=== PATIENT | female | born 1950 | race Caucasian/White ===

== ENCOUNTER 2017-10-04 13:18 | Day surgery (SDC) | payer OTHER ==
[~2017-10-04 13:18] MED LIST: ALBU90OI INH; ASPI325EC PO; ATOR40TA PO; BENZ100A PO; CLON2 PO; CYCL10 PO; Cephalexin500 M1 PO; DIPH50 PO; GABA100 PO; IBUP400 PO; LISI5 PO; METF500 PO; Naprosyn375 MG PO; Norco 5-325 Ta1 EACH PO; PANT40 PO; PIOG45 PO; Prednisone20 MG PO; TRAM50 PO; Ultram50 MG PO; Zithromax250 MG PO
[2017-10-04 14:57] LABS: BASOPHILS ABSOLUTE AUTO 0.06 K/mm3 (0.00-0.23); BASOPHILS PERCENT AUTO 1 % (0-2); EOSINOPHILS ABSOLUTE AUTO 0.33 K/mm3 (0.00-0.68); EOSINOPHILS PERCENT AUTO 4 % (0-6); Hematocrit 25.2 % (33.0-51.0); Hemoglobin 7.4 g/dL (11.5-16.0); IMMATURE GRAN ABSOLUTE AUTO 0.03 K/mm3 (0.00-0.10); IMMATURE GRAN PERCENT AUTO 0 % (0-1); LYMPHOCYTES ABSOLUTE AUTO 1.85 K/mm3 (0.84-5.20); LYMPHOCYTES PERCENT AUTO 21 % (21-46); MONOCYTES ABSOLUTE AUTO 0.98 K/mm3 (0.16-1.47); MONOCYTES PERCENT AUTO 11 % (4-13); Mean Corpuscular HGB 19.8 pg (26.0-34.0); Mean Corpuscular HGB Conc 29.4 g/dL (31.5-36.5); Mean Corpuscular Volume 67 fL (80-100); NEUTROPHILS PERCENT AUTO 63 % (41-73); Platelet Count 648 K/mm3 (150-400); RDW Coefficient Variation 17.8 % (11.7-14.2); Red Blood Cell Count 3.74 M/mm3 (3.80-5.20); White Blood Cell Count 8.65 K/mm3 (4.00-11.30)
[2017-10-04] MEDS ORDERED: METF500 PO (16:23)
[2017-10-04] MEDS ORDERED: ATOR80 PO (16:23)
[2017-10-04] MEDS ORDERED: Cyclobenzaprine5 MG PO (16:26)
[2017-10-04] MEDS ORDERED: Ferrous Sulfat325 MG PO (16:27)
[2017-10-04] MEDS ORDERED: CLARITIN10 MG PO (16:28)
[2017-10-04 18:13] LABS: Hematocrit 26.3 % (33.0-51.0); Mean Corpuscular HGB Conc 30.4 g/dL (31.5-36.5); Mean Corpuscular Volume 69 fL (80-100); Mean Platelet Volume 9.6 fL (9.1-12.4); Platelet Count 563 K/mm3 (150-400); RDW Coefficient Variation 20.1 % (11.7-14.2); RDW Standard Deviation 47.7 fL (35.1-46.3); Red Blood Cell Count 3.81 M/mm3 (3.80-5.20); White Blood Cell Count 9.35 K/mm3 (4.00-11.30)
[2017-10-04] MEDS ORDERED: Lasix20 MG PO (20:39)
== END 2017-10-04 18:13 | disposition home or self-care (01) ==
LOC: ATC 13:18
PROVIDERS: Physician Assistant
DX: D64.9 Anemia, unspecified (principal); M62.81 Muscle weakness (generalized); R60.0 Localized edema; I87.2 Venous insufficiency (chronic) (peripheral); L50.9 Urticaria, unspecified; Z74.1 Need for assistance with personal care; F17.210 Nicotine dependence, cigarettes, uncomplicated; E78.5 Hyperlipidemia, unspecified
CPT/HCPCS: 36415; 36430; 85025; 85027; 86850; 86900; 86901; 86923; J7030; P9016

== ENCOUNTER 2017-10-04 18:23 | Emergency (ER) | payer OTHER ==
[~2017-10-04] VITALS: Ht 172.7 cm; Wt 79.4 kg
[~2017-10-04 18:23] MED LIST changes: +ATOR80 PO; +CLARITIN10 MG PO; +Cyclobenzaprine5 MG PO; +Ferrous Sulfat325 MG PO
[2017-10-04 19:48] LABS: BASOPHILS ABSOLUTE AUTO 0.08 K/mm3 (0.00-0.23); BASOPHILS PERCENT AUTO 1 % (0-2); EOSINOPHILS ABSOLUTE AUTO 0.29 K/mm3 (0.00-0.68); EOSINOPHILS PERCENT AUTO 3 % (0-6); Hemoglobin 8.1 g/dL (11.5-16.0); IMMATURE GRAN ABSOLUTE AUTO 0.03 K/mm3 (0.00-0.10); IMMATURE GRAN PERCENT AUTO 0 % (0-1); LYMPHOCYTES ABSOLUTE AUTO 1.66 K/mm3 (0.84-5.20); LYMPHOCYTES PERCENT AUTO 17 % (21-46); MONOCYTES ABSOLUTE AUTO 0.98 K/mm3 (0.16-1.47); MONOCYTES PERCENT AUTO 10 % (4-13); Mean Corpuscular HGB 20.9 pg (26.0-34.0); Mean Corpuscular Volume 70 fL (80-100); Mean Platelet Volume 8.6 fL (9.1-12.4); NEUTROPHILS ABSOLUTE AUTO 6.79 K/mm3 (1.96-9.15); NEUTROPHILS PERCENT AUTO 69 % (41-73); Platelet Count 616 K/mm3 (150-400); RDW Coefficient Variation 19.9 % (11.7-14.2); RDW Standard Deviation 47.5 fL (35.1-46.3); Red Blood Cell Count 3.88 M/mm3 (3.80-5.20); White Blood Cell Count 9.83 K/mm3 (4.00-11.30)
[2017-10-04 20:07] LABS: Alanine Aminotransfer (ALT/SGP 19 U/L (12-78); Albumin, Blood 3.9 g/dL (3.4-5.0); Albumin/Globulin Ratio 0.9 (0.8-1.8); Alk Phos 120 U/L (50-136); Anion Gap 8 mmol/L (6-16); Aspartate Aminotrans (AST/SGOT 24 U/L (12-37); Bilirubin, Total 1.1 mg/dL (0.1-1.0); Blood Urea Nitrogen 23 mg/dL (8-24); Bun/Creatinine Ratio 31.2 (12.0-20.0); CO2, Blood 25 mmol/L (21-32); Chloride, Blood 107 mmol/L (98-108); Creatinine, Blood 0.74 mg/dL (0.40-1.00); Globulin, Blood 4.2 g/dL (2.2-4.0); Glomerular Filtration Rate >60 (60-); Glucose, Blood 96 mg/dL (70-99); Potassium, Blood 4.1 mmol/L (3.5-5.5); Sodium, Blood 140 mmol/L (136-145); Total Protein, Blood 8.1 g/dL (6.4-8.2)
[2017-10-04] MEDS ORDERED: Lasix20 MG PO (20:39)
== END 2017-10-04 21:38 | disposition home or self-care (01) ==
LOC: ER 18:23
PROVIDERS: Emergency Medicine
DX: R60.0 Localized edema (principal); M16.10 Unilateral primary osteoarthritis, unspecified hip; G89.29 Other chronic pain; E11.9 Type 2 diabetes mellitus without complications; D64.9 Anemia, unspecified; F17.200 Nicotine dependence, unspecified, uncomplicated; Z79.899 Other long term (current) drug therapy; Z79.84 Long term (current) use of oral hypoglycemic drugs
CPT/HCPCS: 36415; 80053; 83880; 85025; 96374; 99283; J1940

== ENCOUNTER 2018-01-21 08:40 | Day surgery (SDC) | payer OTHER ==
[~2018-01-21] VITALS: Ht 172.7 cm; Wt 79.4 kg
[~2018-01-21 08:40] MED LIST changes: +Lasix20 MG PO
[2018-01-21 11:26] LABS: BASOPHILS ABSOLUTE AUTO 0.04 K/mm3 (0.00-0.23); BASOPHILS PERCENT AUTO 1 % (0-2); EOSINOPHILS ABSOLUTE AUTO 0.18 K/mm3 (0.00-0.68); EOSINOPHILS PERCENT AUTO 2 % (0-6); Hematocrit 30.3 % (33.0-51.0); Hemoglobin 9.6 g/dL (11.5-16.0); IMMATURE GRAN ABSOLUTE AUTO 0.02 K/mm3 (0.00-0.10); IMMATURE GRAN PERCENT AUTO 0 % (0-1); LYMPHOCYTES ABSOLUTE AUTO 1.37 K/mm3 (0.84-5.20); LYMPHOCYTES PERCENT AUTO 17 % (21-46); MONOCYTES PERCENT AUTO 8 % (4-13); Mean Corpuscular HGB 24.3 pg (26.0-34.0); Mean Corpuscular HGB Conc 31.7 g/dL (31.5-36.5); Mean Corpuscular Volume 77 fL (80-100); Mean Platelet Volume 8.9 fL (9.1-12.4); NEUTROPHILS ABSOLUTE AUTO 5.74 K/mm3 (1.96-9.15); NEUTROPHILS PERCENT AUTO 72 % (41-73); Platelet Count 366 K/mm3 (150-400); RDW Coefficient Variation 21.2 % (11.7-14.2); Red Blood Cell Count 3.95 M/mm3 (3.80-5.20); White Blood Cell Count 7.95 K/mm3 (4.00-11.30)
[2018-01-21 11:49] LABS: Anion Gap 8 mmol/L (6-16); Blood Urea Nitrogen 19 mg/dL (8-24); Bun/Creatinine Ratio 30.4 (12.0-20.0); CO2, Blood 26 mmol/L (21-32); Calcium, Blood 8.5 mg/dL (8.5-10.1); Chloride, Blood 102 mmol/L (98-108); Creatinine, Blood 0.62 mg/dL (0.40-1.00); Glomerular Filtration Rate >60 (60-); Glucose, Blood 94 mg/dL (70-99); Potassium, Blood 3.7 mmol/L (3.5-5.5); Sodium, Blood 136 mmol/L (136-145)
== END 2018-01-21 11:53 | disposition home or self-care (01) ==
LOC: ORSCSDS 08:40
PROVIDERS: Internal Medicine Gastroenterology
PROC: 0DB68ZX Excision of Stomach, Via Natural or Artificial Opening Endoscopic, Diagnostic (ICD-10-PCS; principal; 2018-01-21 10:00)
PROC: 0DB58ZX Excision of Esophagus, Via Natural or Artificial Opening Endoscopic, Diagnostic (ICD-10-PCS; principal; 2018-01-21 10:00)
DX: D64.9 Anemia, unspecified (principal); K21.0 Gastro-esophageal reflux disease with esophagitis; K29.80 Duodenitis without bleeding; K29.70 Gastritis, unspecified, without bleeding; K44.9 Diaphragmatic hernia without obstruction or gangrene; Z87.19 Personal history of other diseases of the digestive system; I10 Essential (primary) hypertension; F41.8 Other specified anxiety disorders; E78.5 Hyperlipidemia, unspecified; E11.9 Type 2 diabetes mellitus without complications; F17.210 Nicotine dependence, cigarettes, uncomplicated; Z79.84 Long term (current) use of oral hypoglycemic drugs; Z79.899 Other long term (current) drug therapy
CPT/HCPCS: 80048; 82941; 82947; 85025; J2250; J7120

== ENCOUNTER 2018-07-07 15:03 | Inpatient (IN) | payer OTHER ==
[~2018-07-07] VITALS: Ht 152.4 cm; Wt 92.1 kg
[~2018-07-07 15:03] MED LIST changes: -ATOR80 PO; +FURO20 PO; +Ferosul325 MG PO; -LISI5 PO; +Micro-K10 MEQ PO; +Protonix40 MG PO
[2018-07-07 16:13] LABS: BASOPHILS ABSOLUTE AUTO 0.03 K/mm3 (0.00-0.23); BASOPHILS PERCENT AUTO 0 % (0-2); EOSINOPHILS ABSOLUTE AUTO 0.02 K/mm3 (0.00-0.68); EOSINOPHILS PERCENT AUTO 0 % (0-6); Hemoglobin 6.2 g/dL (11.5-16.0); IMMATURE GRAN ABSOLUTE AUTO 0.04 K/mm3 (0.00-0.10); IMMATURE GRAN PERCENT AUTO 1 % (0-1); LYMPHOCYTES ABSOLUTE AUTO 1.06 K/mm3 (0.84-5.20); LYMPHOCYTES PERCENT AUTO 14 % (21-46); MONOCYTES ABSOLUTE AUTO 0.82 K/mm3 (0.16-1.47); MONOCYTES PERCENT AUTO 11 % (4-13); Mean Corpuscular HGB 20.7 pg (26.0-34.0); Mean Corpuscular HGB Conc 29.5 g/dL (31.5-36.5); Mean Corpuscular Volume 70 fL (80-100); Mean Platelet Volume 8.6 fL (9.1-12.4); NEUTROPHILS ABSOLUTE AUTO 5.59 K/mm3 (1.96-9.15); NEUTROPHILS PERCENT AUTO 74 % (41-73); NRBC ABSOLUTE 0.03 K/mm3 (0.00-0.02); NRBC Auto 0.4 /100 WBC (0.0-0.2); Platelet Count 459 K/mm3 (150-400); RDW Standard Deviation 47.2 fL (35.1-46.3); White Blood Cell Count 7.56 K/mm3 (4.00-11.30)
[2018-07-07 16:39] LABS: Alanine Aminotransfer (ALT/SGP 62 U/L (12-78); Albumin, Blood 3.1 g/dL (3.4-5.0); Albumin/Globulin Ratio 0.8 (0.8-1.8); Alk Phos 88 U/L (50-136); Anion Gap 9 mmol/L (6-16); Aspartate Aminotrans (AST/SGOT 104 U/L (12-37); Bilirubin, Total 0.2 mg/dL (0.1-1.0); Blood Urea Nitrogen 23 mg/dL (8-24); Bun/Creatinine Ratio 34.7 (12.0-20.0); CO2, Blood 23 mmol/L (21-32); Calcium, Blood 8.2 mg/dL (8.5-10.1); Chloride, Blood 112 mmol/L (98-108); Creatinine, Blood 0.66 mg/dL (0.40-1.00); Globulin, Blood 4.1 g/dL (2.2-4.0); Glomerular Filtration Rate >60 (60-); Glucose, Blood 93 mg/dL (70-99); Potassium, Blood 3.6 mmol/L (3.5-5.5); Sodium, Blood 144 mmol/L (136-145); Total Protein, Blood 7.2 g/dL (6.4-8.2)
[2018-07-07 17:45] LABS: Source, Urine Clean Catch
[2018-07-07 17:53] LABS: Bilirubin, Urine Neg (Neg); Blood, Urine 4+ (Neg); Glucose Qualitative, Urine Neg (Neg); Ketones, Urine 1+ (Neg); Leukocyte Esterase, Urine 2+ (Neg); Nitrite, Urine Pos (Neg); Protein, Urine 3+ (Neg); Urobilinogen, Urine NORM (Normal)
[2018-07-07 17:57] LABS: International Normalized Ratio 1.42; Prothrombin Time Results 14.6 Sec (9.7-11.5)
[2018-07-07 17:58] LABS: Appearance, Urine Hazy (Clear); Color, Urine Yellow (P-Yellow)
[2018-07-07 17:59] LABS: White Blood Cells, Urine 25-50 /hpf (0-5)
[2018-07-07 18:00] LABS: Bacteria Many /hpf; Squamous Epithelial Cells Few /hpf (Few)
[2018-07-08 06:24] LABS: BASOPHILS ABSOLUTE AUTO 0.04 K/mm3 (0.00-0.23); BASOPHILS PERCENT AUTO 1 % (0-2); EOSINOPHILS ABSOLUTE AUTO 0.06 K/mm3 (0.00-0.68); EOSINOPHILS PERCENT AUTO 1 % (0-6); Hematocrit 22.4 % (33.0-51.0); Hemoglobin 6.6 g/dL (11.5-16.0); IMMATURE GRAN ABSOLUTE AUTO 0.05 K/mm3 (0.00-0.10); IMMATURE GRAN PERCENT AUTO 1 % (0-1); LYMPHOCYTES ABSOLUTE AUTO 1.24 K/mm3 (0.84-5.20); LYMPHOCYTES PERCENT AUTO 17 % (21-46); MONOCYTES PERCENT AUTO 13 % (4-13); Mean Corpuscular HGB 21.2 pg (26.0-34.0); Mean Corpuscular HGB Conc 29.5 g/dL (31.5-36.5); Mean Corpuscular Volume 72 fL (80-100); Mean Platelet Volume 8.8 fL (9.1-12.4); NEUTROPHILS ABSOLUTE AUTO 4.87 K/mm3 (1.96-9.15); NEUTROPHILS PERCENT AUTO 68 % (41-73); NRBC ABSOLUTE 0.08 K/mm3 (0.00-0.02); NRBC Auto 1.1 /100 WBC (0.0-0.2); Platelet Count 424 K/mm3 (150-400); RDW Coefficient Variation 19.3 % (11.7-14.2); RDW Standard Deviation 50.1 fL (35.1-46.3); Red Blood Cell Count 3.11 M/mm3 (3.80-5.20); White Blood Cell Count 7.16 K/mm3 (4.00-11.30)
[2018-07-08 06:34] LABS: Anion Gap 10 mmol/L (6-16); Blood Urea Nitrogen 17 mg/dL (8-24); Bun/Creatinine Ratio 24.3 (12.0-20.0); CO2, Blood 22 mmol/L (21-32); Calcium, Blood 7.7 mg/dL (8.5-10.1); Chloride, Blood 112 mmol/L (98-108); Glomerular Filtration Rate >60 (60-); Glucose, Blood 90 mg/dL (70-99); Potassium, Blood 3.4 mmol/L (3.5-5.5); Sodium, Blood 144 mmol/L (136-145)
[2018-07-08 07:12] LABS: Influenza A Negative (NEGATIVE); Influenza B Negative (NEGATIVE)
[2018-07-08 18:52] LABS: Hematocrit 27.3 % (33.0-51.0); Hemoglobin 8.5 g/dL (11.5-16.0)
--- NOTE | 2018-07-08 19:51 | NUR ---
END OF SHIFT PT HAS HAD 2 UNITS OF BLOOD, VSSW, PT ABLE TO FOLLOW DIRECTIONS, NO CHNAGES TO THE ROSE ASSESSMENT, PT TOLERATING AMBULATION,
[2018-07-09 04:12] LABS: Hematocrit 28.9 % (33.0-51.0); Hemoglobin 8.7 g/dL (11.5-16.0); Mean Corpuscular HGB 22.1 pg (26.0-34.0); Mean Corpuscular HGB Conc 30.1 g/dL (31.5-36.5); Mean Corpuscular Volume 74 fL (80-100); Mean Platelet Volume 8.8 fL (9.1-12.4); NRBC ABSOLUTE 0.08 K/mm3 (0.00-0.02); NRBC Auto 1.1 /100 WBC (0.0-0.2); Platelet Count 401 K/mm3 (150-400); RDW Coefficient Variation 20.4 % (11.7-14.2); RDW Standard Deviation 53.5 fL (35.1-46.3); Red Blood Cell Count 3.93 M/mm3 (3.80-5.20); White Blood Cell Count 7.14 K/mm3 (4.00-11.30)
[2018-07-09 04:37] LABS: Albumin, Blood 2.7 g/dL (3.4-5.0); Anion Gap 10 mmol/L (6-16); Blood Urea Nitrogen 12 mg/dL (8-24); Bun/Creatinine Ratio 19.3 (12.0-20.0); CO2, Blood 22 mmol/L (21-32); Chloride, Blood 110 mmol/L (98-108); Creatinine, Blood 0.62 mg/dL (0.40-1.00); Glomerular Filtration Rate >60 (60-); Glucose, Blood 75 mg/dL (70-99); Potassium, Blood 3.3 mmol/L (3.5-5.5); Sodium, Blood 142 mmol/L (136-145)
--- NOTE | 2018-07-09 06:25 | NUR ---
SHIFT SUMMARY- PT HAS REMAINED AOX3 THIS SHIFT, OCCASIONAL DISORIENTATION TO PLACE ON WAKING, REORIENTS WELL. PT CONTINUES TO TALK TO SELF IN ROOM AND CALL OUT LOUDLY FROM ROOM. PT IS NOT COOPERATIVE WITH CARE- REFUSES TURNING AND MULTIPLE ATTEMPTS AT CHANGING ATTENDS OR DRESSINGS ON LEGS. PT YELLING AT STAFF THIS AM WHEN ATTEMPTING TO MAKE COMFORTABLE AND ADDRESS PAIN- REFUSES TO ANSWER QUESTIONS TO WHAT WILL MAKE HER COMFORTABLE. PT EDUCATED ON SKIN INTEGRITY AND PAIN MANAGEMENT BUT IS NOT RECEPTIVE. PT REFUSING SCD'S WITH LEG WOUUNDS AND LEG PAIN. VITAL SIGNS HAVE REMAINED STABLE. BED IN LOW POSITION, CALL LIGHT IN REACH. BED ALARM SET FOR SAFETY.
--- NOTE | 2018-07-09 17:59 | NUR ---
Initial Visit: Palliative Care Consult for goals of care. Pt is A&O and sitting on the edge of her bed eating dinner upon arrival. Pt is of [place] and lives at home alone. She reports that a caregiver comes into her home 5 days a week. Engaged in therapuetic conversation about Pt's family and goals of care. Pt reports having 2 adult children and their relationship are strained. Her son is currently in alf. Pt also reports losing her due to a stroke in 2012. Started to engage in goals of care including AD/POLST when her IV started having issued. Nurse Robb attempted several times during visit to resolve issue and Pt was distracted with eating her meal. Instructed Pt this RN will follow tomorrow and allow her to finish her meal. Plan is to follow up with Pt to continue discussion with goals of care and AD/POLST.
--- NOTE | 2018-07-09 18:42 | NUR ---
PATIENT TRANSFERRED FROM PCU 2 TO ROOM AT THIS TIME. ALERT. DENIES PAIN OR DISCOMFORT AT THIS TIME. CALL LIGHT IN REACH. WILL REPORT TO NOC RN.
[2018-07-10 05:06] LABS: BASOPHILS ABSOLUTE AUTO 0.06 K/mm3 (0.00-0.23); BASOPHILS PERCENT AUTO 1 % (0-2); EOSINOPHILS ABSOLUTE AUTO 0.25 K/mm3 (0.00-0.68); EOSINOPHILS PERCENT AUTO 3 % (0-6); Hematocrit 27.1 % (33.0-51.0); Hemoglobin 8.5 g/dL (11.5-16.0); IMMATURE GRAN ABSOLUTE AUTO 0.06 K/mm3 (0.00-0.10); IMMATURE GRAN PERCENT AUTO 1 % (0-1); LYMPHOCYTES ABSOLUTE AUTO 1.62 K/mm3 (0.84-5.20); LYMPHOCYTES PERCENT AUTO 19 % (21-46); MONOCYTES ABSOLUTE AUTO 0.78 K/mm3 (0.16-1.47); MONOCYTES PERCENT AUTO 9 % (4-13); Mean Corpuscular HGB 22.7 pg (26.0-34.0); Mean Corpuscular HGB Conc 31.4 g/dL (31.5-36.5); Mean Corpuscular Volume 73 fL (80-100); Mean Platelet Volume 8.8 fL (9.1-12.4); NEUTROPHILS ABSOLUTE AUTO 5.57 K/mm3 (1.96-9.15); NEUTROPHILS PERCENT AUTO 67 % (41-73); NRBC ABSOLUTE 0.04 K/mm3 (0.00-0.02); NRBC Auto 0.5 /100 WBC (0.0-0.2); Platelet Count 397 K/mm3 (150-400); RDW Coefficient Variation 21.1 % (11.7-14.2); RDW Standard Deviation 54.4 fL (35.1-46.3); Red Blood Cell Count 3.74 M/mm3 (3.80-5.20); White Blood Cell Count 8.34 K/mm3 (4.00-11.30)
[2018-07-10 06:06] LABS: Albumin, Blood 2.6 g/dL (3.4-5.0); Anion Gap 10 mmol/L (6-16); Blood Urea Nitrogen 10 mg/dL (8-24); CO2, Blood 24 mmol/L (21-32); Calcium, Blood 7.7 mg/dL (8.5-10.1); Chloride, Blood 106 mmol/L (98-108); Creatinine, Blood 0.62 mg/dL (0.40-1.00); Glomerular Filtration Rate >60 (60-); Glucose, Blood 96 mg/dL (70-99); Phosphorus, Blood 3.4 mg/dL (2.5-4.9); Sodium, Blood 140 mmol/L (136-145)
--- NOTE | 2018-07-10 06:22 | NUR ---
SHIFT SUMMARY PT ADMITTED W/ ANEMIA. H&H THIS MORNING ARE 8.5/27.1. PT'S CHRONIC LEG WOUNDS WERE REDRESSED THIS MORNING W/ XEROFORM, EXU-DRY, AND KERLEX. ZINC CREAM APPLIED TO SCALING TO BLE. SHE HAD SIGNIFICANT PAIN OVERNIGHT R/T LEG CRAMPS/SPASMS. BP ELEVATED THIS AM, LABETALOL GIVEN PER ORDERS. PT INCONT AT BASELINE, ATTENDS IN PLACE. POWERGLIDE STARTED LEAKING LAST NIGHT, WILL NEED TO BE REDRESSED OR TAKEN OUT IF IT CAN'T BE SAVED. WILL CTM UNTIL PASS TO NEXT SHIFT.
--- NOTE | 2018-07-10 09:53 | NUR ---
DEEP IV LEAKS WHEN FLUSHED, D/C'D. SITE CLEAR.
--- NOTE | 2018-07-10 09:54 | NUR ---
PATIENT TALKATIVE WITH MED PASS/ASSESSMENT. SAT TO SIDE OF BED FOR AM MEAL. NOW SLEEPING. CALL LIGHT IN REACH. BED ALARM ON.
--- NOTE | 2018-07-10 15:53 | NUR ---
Pt visit this afternoon. Pt is A&O x4 and initially reports no pain. Engaged in therapeutic conversation about goals of care and discussed POLST form. Pt is agreeable to completing a POLST. Provided education on each section including cardiopulmonary resuscitation, medical interventions, and artificial nutrition. Pt chooses DNR, Limited treatment, and no artificial nutrition by tube and signs POLST. Pt starts to experience 10/10 cramping pain in her legs and hips. Notified nurse and instructed Pt visit can be scheduled in the future if she has any other concerns. Called Dr George and left message reporting of Pt's wishes and POLST needs physician signature. Plan is to obtain copy of completed once hospitalist has signed. Will remain available for any other concerns.
--- NOTE | 2018-07-10 17:59 | NUR ---
SHIFT SUMMARY PATIENT SITTING TO SIDE OF LIANE FOR MEALS. LEG CRAMPS SOME IMPROVED TODAY. PATIENT APPROPRIATE. REFUSED TO STAND WITH PT. TOLERATING PO. PATIENT SPOKE WITH PALLIATIVE CARE RN, AND LATER REPEATED TO THIS RM, SHE WISHES TO BE DNR STATUS. DR FINN INFORMED, SHE WILL ENTER ORDER. NO ACUTE CHANGES.
--- NOTE | 2018-07-11 04:08 | NUR ---
SHIFT SUMMARY PT REMAINS ON FLOOR R/T ANEMIA. HER H&H IS LOW BUT STABLE AT 8.5, RIGHT ABOUT WHERE IT HAS BEEN FOR THREE DAYS. SHE CONTINUES TO COMPLAIN OF MUSCLE SPASMS IN HER LEGS. BLE ARE PAINFUL TO THE TOUCH AND SHE HAS OBVIOUS VENOUS STASIS PROBLEMS AND CHRONIC WOUNDS TO HER CALVES AND ANKLES. PT IS INCONT AT BASELINE, ATTENDS IN PLACE. SHE BRIEFLY GOT UP TO THE CHAIR LAST NIGHT WITH 2 ASSIST PIVOT TRANSFER BUT WAS UNABLE TO BEAR WEIGHT LONGER THAN A FEW SECONDS TO SHIFT FROM ONE TO THE OTHER. NO FUTHER ACUTE CHANGES. WILL CTM UNTIL PASS TO NEXT SHIFT.
[2018-07-11 10:45] LABS: BASOPHILS ABSOLUTE AUTO 0.05 K/mm3 (0.00-0.23); BASOPHILS PERCENT AUTO 1 % (0-2); EOSINOPHILS ABSOLUTE AUTO 0.29 K/mm3 (0.00-0.68); EOSINOPHILS PERCENT AUTO 4 % (0-6); Hematocrit 29.9 % (33.0-51.0); Hemoglobin 9.2 g/dL (11.5-16.0); IMMATURE GRAN ABSOLUTE AUTO 0.07 K/mm3 (0.00-0.10); IMMATURE GRAN PERCENT AUTO 1 % (0-1); LYMPHOCYTES ABSOLUTE AUTO 1.22 K/mm3 (0.84-5.20); LYMPHOCYTES PERCENT AUTO 16 % (21-46); MONOCYTES ABSOLUTE AUTO 0.79 K/mm3 (0.16-1.47); MONOCYTES PERCENT AUTO 10 % (4-13); Mean Corpuscular HGB 22.8 pg (26.0-34.0); Mean Corpuscular HGB Conc 30.8 g/dL (31.5-36.5); Mean Corpuscular Volume 74 fL (80-100); Mean Platelet Volume 8.7 fL (9.1-12.4); NEUTROPHILS ABSOLUTE AUTO 5.42 K/mm3 (1.96-9.15); NEUTROPHILS PERCENT AUTO 69 % (41-73); Platelet Count 423 K/mm3 (150-400); RDW Standard Deviation 56.6 fL (35.1-46.3); Red Blood Cell Count 4.04 M/mm3 (3.80-5.20); White Blood Cell Count 7.84 K/mm3 (4.00-11.30)
[2018-07-11 11:00] LABS: Anion Gap 8 mmol/L (6-16); Blood Urea Nitrogen 10 mg/dL (8-24); Bun/Creatinine Ratio 15.6 (12.0-20.0); CO2, Blood 27 mmol/L (21-32); Calcium, Blood 8.2 mg/dL (8.5-10.1); Chloride, Blood 103 mmol/L (98-108); Creatinine, Blood 0.64 mg/dL (0.40-1.00); Glomerular Filtration Rate >60 (60-); Glucose, Blood 100 mg/dL (70-99); Potassium, Blood 3.5 mmol/L (3.5-5.5); Sodium, Blood 138 mmol/L (136-145)
--- NOTE | 2018-07-11 18:28 | NUR ---
SUMMARY NO ACUTE CHANGES NOTED THROUGH THE DAY. ULTRAM & TYLENOL GIVEN FOR PAIN. DRSG TO BILATERAL LEGS CHAGED. PT WAS GIVEN A BED BATH. CALL LIGHT IN REACH, AVINASH AND REPORT TO KAYLA RN
--- NOTE | 2018-07-12 04:43 | NUR ---
SHIFT SUMMARY: NO ACUTE CHANGES THIS SHIFT. PT C/O BLE MUSCLE SPASMS. MANAGED WITH ULTRAM AND TYLENOL PER EMAR. USING BEDPAN NEEDED. 2 MOD ASSIST. DRINKING AND VOIDING [place] AMT. DRESSING TO BLE WOUNDS CDI. BP LOW IN BEGINNING OF SHIFT AT 99/64. BP BACK UP TO 163/66. PLAN IS FOR PT TO DISCHARGE HOME TODAY. NEED TO ARRANGE TRANSPORTATION FOR 10:30 BECAUSE CAREGIVERS WILL BE WAITING FOR PT AT HER HOME AROUND 1100. WILL PASS ON TO DAY SHIFT NURSE.
[2018-07-12 09:17] LABS: BASOPHILS ABSOLUTE AUTO 0.06 K/mm3 (0.00-0.23); BASOPHILS PERCENT AUTO 1 % (0-2); EOSINOPHILS ABSOLUTE AUTO 0.41 K/mm3 (0.00-0.68); EOSINOPHILS PERCENT AUTO 7 % (0-6); Hematocrit 30.6 % (33.0-51.0); Hemoglobin 9.4 g/dL (11.5-16.0); IMMATURE GRAN ABSOLUTE AUTO 0.05 K/mm3 (0.00-0.10); IMMATURE GRAN PERCENT AUTO 1 % (0-1); LYMPHOCYTES ABSOLUTE AUTO 1.73 K/mm3 (0.84-5.20); LYMPHOCYTES PERCENT AUTO 30 % (21-46); MONOCYTES ABSOLUTE AUTO 0.66 K/mm3 (0.16-1.47); MONOCYTES PERCENT AUTO 11 % (4-13); Mean Corpuscular HGB 22.3 pg (26.0-34.0); Mean Corpuscular HGB Conc 30.7 g/dL (31.5-36.5); Mean Corpuscular Volume 73 fL (80-100); Mean Platelet Volume 8.8 fL (9.1-12.4); NEUTROPHILS ABSOLUTE AUTO 2.91 K/mm3 (1.96-9.15); NEUTROPHILS PERCENT AUTO 50 % (41-73); Platelet Count 423 K/mm3 (150-400); RDW Coefficient Variation 22.5 % (11.7-14.2); RDW Standard Deviation 57.2 fL (35.1-46.3); Red Blood Cell Count 4.21 M/mm3 (3.80-5.20); White Blood Cell Count 5.82 K/mm3 (4.00-11.30)
[2018-07-12 09:31] LABS: Anion Gap 8 mmol/L (6-16); Blood Urea Nitrogen 10 mg/dL (8-24); Bun/Creatinine Ratio 15.4 (12.0-20.0); CO2, Blood 26 mmol/L (21-32); Chloride, Blood 105 mmol/L (98-108); Creatinine, Blood 0.65 mg/dL (0.40-1.00); Glomerular Filtration Rate >60 (60-); Glucose, Blood 122 mg/dL (70-99); Potassium, Blood 3.6 mmol/L (3.5-5.5); Sodium, Blood 139 mmol/L (136-145)
--- NOTE | 2018-07-12 10:00 | NUR ---
DR FINN HERE TO SEE PT. REPORTS TO GIVE EXTRA DOSE OF FLEXERIL NOW. PT HAVING "SPASMS" TO LEGS. PT REPORTS PAIN 10+/10 NOW WITH SPASMS.
--- NOTE | 2018-07-12 13:30 | NUR ---
DISCHARGE: THIS RN IN TO SPEAK WITH PATIENT REGARDING DISCHARGE. PT STATES SHE THINKS SHE SHOULD STAY ANOTHER NIGHT BECAUSE SHE DOESNT HAVE HER CELL PHONE TO GET A HOLD OF HER CAREGIVER. PT STATES HER NEIGHBOR HAS HER CELL PHONE AND PURSE BUT IS UNABLE TO TELL ME HER NEIGHBORS NAME. DICHARGE PLANNING NOTE VAGUE AND THIS RN UNABLE TO TELL IF HOME HEALTH HAS BEEN ARRANGED FOR THE PATIENT. UNABLE TO REACH HOME HEALTH OR APD TO GET IN TOUCH WITH PATIENT'S RADIOLOGY DIRECTOR. DR FINN NOTIFIED AND DISCHARGE DELAYED AT THIS TIME UNTIL SAFE PLAN CAN BE ARRANGED FOR PATIENT.
--- NOTE | 2018-07-12 16:41 | NUR ---
SHIFT SUMMARY PT EATING AND DRINKING. PT BEEN ASSISTED WITH ADL'S PRN. PT BED ALARM IN PLACE. DR FINN AWARE OF PT NOT BEING DC'D TODAY. PT REPOSITIONED HERSELF AT TIMES AND WITH ASSIST AT TIMES. BLE LEGS ELEVATED WITH PILLOWS.
--- NOTE | 2018-07-12 16:50 | NUR ---
REPORT GIVEN TO Hans WHO REPORTED THAT PT'S VOIDED AND IS TAKING OVER CARE AT THIS TIME.
--- NOTE | 2018-07-12 16:50 | NUR ---
assumed care of patient at this time.
--- NOTE | 2018-07-12 17:41 | NUR ---
WOUND CARE: THIS RN IN TO CHANGE DRESSINGS TO BLE DRESSINGS WERE COMING LOOSE AND WOUNDS WERE EXPOSED. ATTEMPTED TO SOAK BLE TO REMOVE GAUZE THAT WAS STUCK TO WOUNDS. PT SCREAMS AND HITS THIS RN REPEATEDLY IN THE ARMS. SECOND RN CALLED TO ROOM TO ASSIST. ATTEMPTED TO EXPLAIN TO PT EXACT STEPS FOR CHANGING DRESSINGS. PT MEDICATED FOR PAIN PRIOR TO DRESSING CHANGES. PT CONT TO YELL AT STAFF, TELLING US TO "GET LOST" AND "SOAK YOUR HEAD IN THAT TUB." STAFF CONTINUOUSLY REMINDING PATIENT NOT TO HIT US. FINALLY ABLE TO REMOVE DRESSINGS WITH SALINE, SKIN CLEANED AND NEW DRESSINGS APPLIED. PICTURES OF WOUNDS UPDATED. PT LEGS ELEVATED ON PILLOWS AND LINENS CHANGED. PT SEEMS TO CALM DOWN WHEN DRESSING CHANGE FINISHED. BEDPAN USED AND CLEAN ATTENDS APPLIED. CREAM TO ALANA FOLDS PRN. SITTING UP IN BED EATING DINNER AFTER CARE.
--- NOTE | 2018-07-13 02:16 | NUR ---
REPORT GIVEN TO DANDY ABEL WHO WILL BE RESUMING CARE OF PATIENT.
--- NOTE | 2018-07-13 02:41 | NUR ---
APPROX. 0213 PT REPORT FROM OS, RN. PT RESTING IN BED, EYES CLOSED. WCTM UNTIL REPORT TO DAY SHIFT RN.
--- NOTE | 2018-07-13 07:12 | NUR ---
SHIFT SUMMARY ASSUMED CARE OF PT APPROX 0220. PT A&O X4; CHRONIC PAIN IN BLE AND "JOINTS" MANGED PER EMAR. PT REPOSITIONS SELF IN BED. ATTENDS CHANGED PRN; MULTILAYER FOAM DRESSINGS TO PRESSURE WOUND AND TWO AREAS OF EXCORIATION ON BUTTOCKS CHANGED; SKIN BLANCHES. PT DENIES SOB, NAUSEA AND CP; RA. BED ALARM AND SIDE RAILS X3. CALL LIGHT IN REACH; PT DEMONSTRATES USE.
--- NOTE | 2018-07-13 10:35 | NUR ---
DR FINN RECENTLY TO SEE PT.
--- NOTE | 2018-07-13 16:45 | NUR ---
PT CONT TO REFUSE TO HAVE DRESSINGS CHANGED.
--- NOTE | 2018-07-13 19:28 | NUR ---
SHIFT SUMMARY PT EATING AND DRINKING. PT VOIDING IN ATTENDS. PT BEEN REFUSING TO HAVE DRESSINGS CHANGED (MULT TIMES TODAY). PT BEEN REPOSITIONING SELF IN BED WELL. PT BEEN MED FOR PAIN AND FOR SPASMS.
--- NOTE | 2018-07-14 04:46 | NUR ---
SHIFT SUMMARY: NO ACUTE CHANGES. PT C/O PAIN IN HER HIPS. REPOSITIONED SELF ON EDGE OF BED AND WAS GIVEN A WARM PACK WHICH SHE STATED HELPED. ALSO GIVEN TYLENOL AND ULTRAM PER EMAR. REFUSING DRESSING CHANGES. WILL CONTINUE TO REINFORCE. USING BEDPAN PRN. ATTENDS IN PLACE. USING CALL LIGHT APPROPRIATLY.
--- NOTE | 2018-07-14 05:15 | NUR ---
PT APPEARS TP BE SLEEPING AT THIS TIME. WILL DO MORNING ROUTINE + VITALS IN THE NEXT HOUR.
[2018-07-14] MEDS ORDERED: ACET325 PO (11:12)
[2018-07-14] MEDS ORDERED: ASCO500 PO (11:13)
[2018-07-14] MEDS ORDERED: CEFU500T30 PO (11:14)
[2018-07-14] MEDS ORDERED: AZIT250 PO (11:14)
[2018-07-14] MEDS ORDERED: MIRALAX17 GM PO (11:17)
--- NOTE | 2018-07-14 12:34 | NUR ---
PT SITTING ON SIDE OF BED EATING LUNCH. REMOVED POWER GLIDE LINE FROM MARY GRACE, DRESSING PLACED. CATH TIP INTACT.
--- NOTE | 2018-07-14 13:08 | NUR ---
DISCHARGE PT WAS PROVIDED WITH WRITTEN AND VERBAL DISCHARGE INSTRUCTIONS. PT REPORTED UNDERSTANDING. PRESCRIPTIONS WERE FAXED TO [facility], CALLED AND VERIFIED THAT THEY RECIEVED THE FAX. PT ALERT AND ORIENTED UPON DISCHARGE. VSS. WILL MONITOR UNTIL REPORT TO ONCOMING RN.
== END 2018-07-14 13:45 | disposition home or self-care (01) | DRG 871 ==
LOC: ER 15:03 → ERHOLD 19:19 → SURS 07-08 11:25 → PCU 07-08 12:00 → SURS 07-09 18:37
PROVIDERS: Internal Medicine; Physician Assistant; ADMIT Hospitalist
DX: A41.51 Sepsis due to Escherichia coli [E. coli] (principal); J18.9 Pneumonia, unspecified organism; D50.9 Iron deficiency anemia, unspecified; E11.9 Type 2 diabetes mellitus without complications; I10 Essential (primary) hypertension; K21.9 Gastro-esophageal reflux disease without esophagitis; I87.2 Venous insufficiency (chronic) (peripheral)
CPT/HCPCS: 36415; 36430; 70450; 70551; 71046; 80048; 80053; 80069; 81001; 82272; 82330; 82947; 83605; 85014; 85018; 85025; 85027; 85610; 85730; 86850; 86900; 86901; 86923; 87040; 87077; 87086; 87186; 87804; 90686; 93005; 93010; 96365; 96367; 96375; 97110; 97162; 97166; 97530; 99285-25; C1751; C9113; G0008; J0456; J0610; J0696; J1940; J3010; J3480; J7030; J7050; P9016; P9612; Q3014

== ENCOUNTER 2018-07-21 08:55 | Emergency (ER) | payer OTHER ==
[~2018-07-21] VITALS: Ht 172.7 cm; Wt 79.4 kg
[~2018-07-21 08:55] MED LIST changes: +ACET325 PO; +ASCO500 PO; +AZIT250 PO; +CEFU500T30 PO; +MIRALAX17 GM PO
[2018-07-21 09:45] LABS: BASOPHILS PERCENT AUTO 1 % (0-2); EOSINOPHILS ABSOLUTE AUTO 0.21 K/mm3 (0.00-0.68); EOSINOPHILS PERCENT AUTO 3 % (0-6); Hematocrit 30.2 % (33.0-51.0); Hemoglobin 9.2 g/dL (11.5-16.0); IMMATURE GRAN ABSOLUTE AUTO 0.03 K/mm3 (0.00-0.10); IMMATURE GRAN PERCENT AUTO 0 % (0-1); LYMPHOCYTES ABSOLUTE AUTO 1.02 K/mm3 (0.84-5.20); LYMPHOCYTES PERCENT AUTO 12 % (21-46); MONOCYTES ABSOLUTE AUTO 0.58 K/mm3 (0.16-1.47); MONOCYTES PERCENT AUTO 7 % (4-13); Mean Corpuscular HGB 22.4 pg (26.0-34.0); Mean Corpuscular HGB Conc 30.5 g/dL (31.5-36.5); Mean Corpuscular Volume 74 fL (80-100); Mean Platelet Volume 9.1 fL (9.1-12.4); NEUTROPHILS ABSOLUTE AUTO 6.39 K/mm3 (1.96-9.15); NEUTROPHILS PERCENT AUTO 77 % (41-73); Platelet Count 668 K/mm3 (150-400); RDW Coefficient Variation 23.2 % (11.7-14.2); RDW Standard Deviation 61.4 fL (35.1-46.3); Red Blood Cell Count 4.11 M/mm3 (3.80-5.20); White Blood Cell Count 8.33 K/mm3 (4.00-11.30)
[2018-07-21 10:02] LABS: Alanine Aminotransfer (ALT/SGP 29 U/L (12-78); Albumin, Blood 3.4 g/dL (3.4-5.0); Albumin/Globulin Ratio 0.8 (0.8-1.8); Alk Phos 108 U/L (50-136); Anion Gap 7 mmol/L (6-16); Aspartate Aminotrans (AST/SGOT 23 U/L (12-37); Bilirubin, Total 0.3 mg/dL (0.1-1.0); Blood Urea Nitrogen 34 mg/dL (8-24); Bun/Creatinine Ratio 44.5 (12.0-20.0); CO2, Blood 21 mmol/L (21-32); Calcium, Blood 8.5 mg/dL (8.5-10.1); Chloride, Blood 114 mmol/L (98-108); Creatinine, Blood 0.76 mg/dL (0.40-1.00); Globulin, Blood 4.5 g/dL (2.2-4.0); Glomerular Filtration Rate >60 (60-); Glucose, Blood 98 mg/dL (70-99); Potassium, Blood 3.6 mmol/L (3.5-5.5); Sodium, Blood 142 mmol/L (136-145); Total Protein, Blood 7.9 g/dL (6.4-8.2)
[2018-07-21] MEDS ORDERED: PANT40 PO (10:46)
[2018-07-21 11:45] LABS: Source, Urine Clean Catch
[2018-07-21 11:52] LABS: Appearance, Urine Clear (Clear); Bilirubin, Urine Neg (Neg); Blood, Urine 1+ (Neg); Color, Urine Yellow (P-Yellow); Glucose Qualitative, Urine Neg (Neg); Ketones, Urine 2+ (Neg); Leukocyte Esterase, Urine Neg (Neg); Nitrite, Urine Neg (Neg); Protein, Urine 1+ (Neg); Specific Gravity, Urine 1.025 (1.003-1.022); Urobilinogen, Urine NORM (Normal)
[2018-07-21 12:53] LABS: Red Blood Cells, Urine 0-2 /hpf (0-2); White Blood Cells, Urine 0-2 /hpf (0-5)
[2018-07-21 12:54] LABS: Amorphous Light (0-Heavy); Bacteria Rare /hpf; Squamous Epithelial Cells Few /hpf (Few)
== END 2018-07-21 14:26 | disposition home or self-care (01) ==
LOC: ER 08:55
PROVIDERS: Physician Assistant
DX: M25.552 Pain in left hip (principal); R53.1 Weakness; X58.XXXA Exposure to other specified factors, initial encounter; Z79.84 Long term (current) use of oral hypoglycemic drugs; Z79.899 Other long term (current) drug therapy; E11.9 Type 2 diabetes mellitus without complications; I10 Essential (primary) hypertension; K21.9 Gastro-esophageal reflux disease without esophagitis; Z87.891 Personal history of nicotine dependence
CPT/HCPCS: 36415; 73502; 80053; 81001; 85025; 93005; 93010; 99284-25; P9612

== ENCOUNTER 2018-07-24 10:29 | Inpatient (IN) | payer OTHER ==
[~2018-07-24] VITALS: Ht 170.2 cm; Wt 87.3 kg
--- NOTE | 2018-07-24 11:50 | NUR ---
Pt in via EMS for falls and pain and debility. pt alert X 3, speaks in full sentences. complains of spasmotic leg cramping that has become more severe. States she has a chronic low grade pelvic and hip pain that is constant. pt states occassional headaches some intermitant ringing in right ear. She states smoking have become less tolerable so smoking less and less. She denies alcohol. She states swallowing is ok sometimes pills are hard she does not have teeth. Appetite is moderate, tolerates food but is on iron and stool softerners. pt states she is having to many loose stool. She relays voiding is difficult she feels the urge but voiding is difficult. Pt feels her care is good states her career professional cleans her house and cooks for her she prepares her am meds for her and gives them. She is unaware of her prn meds for pain and reports manages her own pain taking tylenol and asprin which she keeps on the bedside table. She reports serveral falls. Her secondary complaint is lack of sleep she just get into a position she can tolerate and drifts off and legs spasm and wakes her up. She states this is making her sicker and more aggitated. Review of her support system. she is a and her daughter and her are in and travel. She states daughter is next of kin and decision maker if she cant speak. ABNER on file completed last admit. Gentle careful discussion of needing more care and excepting of going to a SNF for care. PT is accepting but it is hard, She has a small dog who is 11 years old and the center of her world. Advised she can have visitation of pet. Will need to get her support from abi guardadoce is unable to return home to help seek foster care for pet. pt is grieving loss of indepedence and decline in her life. This has presented as resistance and non compliance. Will have cahplian see her for spiritual care. Will have volunteers see her for companionship. Updated care managers. They are aware and have initiated follow up care plan with her insurance for outpatient care. pt has wounds on both lower extremeities, both legs red and swollen. buttocks and thighs excoriated and red. will update intpatient palliative team on symptom managemnt.pt kps score is 40%. High risk for repeat admissions.
[2018-07-24 12:17] LABS: BASOPHILS ABSOLUTE AUTO 0.09 K/mm3 (0.00-0.23); BASOPHILS PERCENT AUTO 1 % (0-2); EOSINOPHILS ABSOLUTE AUTO 0.09 K/mm3 (0.00-0.68); EOSINOPHILS PERCENT AUTO 1 % (0-6); Hematocrit 28.1 % (33.0-51.0); Hemoglobin 8.5 g/dL (11.5-16.0); IMMATURE GRAN ABSOLUTE AUTO 0.04 K/mm3 (0.00-0.10); IMMATURE GRAN PERCENT AUTO 1 % (0-1); LYMPHOCYTES ABSOLUTE AUTO 0.84 K/mm3 (0.84-5.20); LYMPHOCYTES PERCENT AUTO 12 % (21-46); MONOCYTES ABSOLUTE AUTO 0.39 K/mm3 (0.16-1.47); MONOCYTES PERCENT AUTO 6 % (4-13); Mean Corpuscular HGB 22.6 pg (26.0-34.0); Mean Corpuscular HGB Conc 30.2 g/dL (31.5-36.5); Mean Corpuscular Volume 75 fL (80-100); NEUTROPHILS ABSOLUTE AUTO 5.58 K/mm3 (1.96-9.15); NEUTROPHILS PERCENT AUTO 79 % (41-73); Platelet Count 704 K/mm3 (150-400); RDW Coefficient Variation 24.2 % (11.7-14.2); RDW Standard Deviation 63.7 fL (35.1-46.3); Red Blood Cell Count 3.76 M/mm3 (3.80-5.20); White Blood Cell Count 7.03 K/mm3 (4.00-11.30)
--- NOTE | 2018-07-24 12:35 | NUR ---
reassessment pt recieved prn meds. pt sleepy but responsive. lessepisodes but still having some spasm that wakes her. Diagnosics pending. suggest reduce flexoril and reduce or remove ativan and minimize narcotic. if appropriate use low dose tylenol to start. suggest pt consult for adjuctive treatment and positioning. pt has reponded to coaching of breath control and relaxing arms
[2018-07-24 12:36] LABS: Alanine Aminotransfer (ALT/SGP 23 U/L (12-78); Albumin, Blood 3.3 g/dL (3.4-5.0); Albumin/Globulin Ratio 0.8 (0.8-1.8); Alk Phos 99 U/L (50-136); Anion Gap 8 mmol/L (6-16); Aspartate Aminotrans (AST/SGOT 24 U/L (12-37); Bilirubin, Total 0.4 mg/dL (0.1-1.0); Blood Urea Nitrogen 30 mg/dL (8-24); CO2, Blood 19 mmol/L (21-32); Calcium, Blood 8.4 mg/dL (8.5-10.1); Chloride, Blood 117 mmol/L (98-108); Creatinine, Blood 0.71 mg/dL (0.40-1.00); Globulin, Blood 4.2 g/dL (2.2-4.0); Glomerular Filtration Rate >60 (60-); Glucose, Blood 99 mg/dL (70-99); Potassium, Blood 3.5 mmol/L (3.5-5.5); Sodium, Blood 144 mmol/L (136-145); Total Protein, Blood 7.5 g/dL (6.4-8.2)
[2018-07-24] MEDS ORDERED: **INCOMPLETE MED REC (13:57)
[2018-07-24] MEDS ORDERED: Cyclobenzaprine5 MG PO (14:04)
[2018-07-24] MEDS ORDERED: ATOR40TA PO (14:04)
[2018-07-24] MEDS ORDERED: SLEEPING50 MG PO (14:05)
[2018-07-24] MEDS ORDERED: FURO20 PO (14:06)
[2018-07-24] MEDS ORDERED: Ferrous Sulfat325 M2 PO (14:06)
[2018-07-24] MEDS ORDERED: GABA100 PO (14:06)
[2018-07-24] MEDS ORDERED: LISI5 PO (14:07)
[2018-07-24] MEDS ORDERED: Metformin HCl500 MG PO (14:08)
[2018-07-24] MEDS ORDERED: Loratadine10 MG PO (14:08)
[2018-07-24] MEDS ORDERED: Omeprazole20 M1 PO (14:09)
[2018-07-24] MEDS ORDERED: POTCHL10ER PO (14:10)
[2018-07-24] MEDS ORDERED: TRAM50 PO (14:11)
[2018-07-24] MEDS ORDERED: IRON PO (14:42)
--- NOTE | 2018-07-24 16:16 | NUR ---
Review of pt needs and medications with admitting physician
--- NOTE | 2018-07-24 16:43 | NUR ---
copy of polst given to ems providers for her chart.
[2018-07-25 03:22] LABS: Source, Urine Catheter
[2018-07-25 03:23] LABS: Bilirubin, Urine Neg (Neg); Blood, Urine 1+ (Neg); Glucose Qualitative, Urine Neg (Neg); Ketones, Urine 2+ (Neg); Leukocyte Esterase, Urine Neg (Neg); Nitrite, Urine Neg (Neg); Protein, Urine 2+ (Neg); Specific Gravity, Urine 1.025 (1.003-1.022); Urobilinogen, Urine NORM (Normal)
[2018-07-25 03:38] LABS: Appearance, Urine Clear (Clear); Color, Urine Yellow (P-Yellow)
[2018-07-25 03:39] LABS: Amorphous Light (0-Heavy); Bacteria Rare /hpf; Mucus Light (0-Heavy); Red Blood Cells, Urine 0-2 /hpf (0-2); Squamous Epithelial Cells Few /hpf (Few); White Blood Cells, Urine Not Seen /hpf (0-5)
--- NOTE | 2018-07-25 04:04 | NUR ---
WOUND CARE PERFORMED. MEPILEX APPLIED TO BUTTOCK ULCER. NONADHEREING DRESSING APPLIED TO BOTH ANKLES. PT HAD PERERA CATH PLACED.
--- NOTE | 2018-07-25 04:46 | NUR ---
SHIFT SUMMARY PT ARRIVED TO ROOM CONFUSED AND TRYING TO GET OUT OF THE BED. PT WAS UNABLE TO FOLLOW DIRECTIONS AND CONTINUED TO TRY TO REMOVE IV. JOESPH VEST AND SOFT WRIST RESTRAINTS WERE PLACED ON PT. PT IS INCOTINENT AND DUE TO PT HAVING WOUNDS A PERERA CATH WAS ORDERED. PERERA CATH WAS PLACED AND URINE SENT TO LAB. PT IS SLEEPING INTERMITENTLY AND COMPLAINS OF BUTTOCKS HURTING. PT TX FOR DISCOMFORT PER EMAR WITH ACCEPTABLE RESULTS. PT CURRENTLY IS QUIET AND BREATHING EASY. CALL LIGHT IN REACH BED ALARM ARMED.
[2018-07-25 05:22] LABS: Hematocrit 26.6 % (33.0-51.0); Hemoglobin 7.7 g/dL (11.5-16.0); Mean Corpuscular HGB Conc 28.9 g/dL (31.5-36.5); Mean Corpuscular Volume 76 fL (80-100); Mean Platelet Volume 8.9 fL (9.1-12.4); Platelet Count 609 K/mm3 (150-400); RDW Standard Deviation 64.3 fL (35.1-46.3); White Blood Cell Count 6.26 K/mm3 (4.00-11.30)
[2018-07-25 06:01] LABS: Anion Gap 10 mmol/L (6-16); Blood Urea Nitrogen 21 mg/dL (8-24); Bun/Creatinine Ratio 35.5 (12.0-20.0); CO2, Blood 19 mmol/L (21-32); Calcium, Blood 7.9 mg/dL (8.5-10.1); Chloride, Blood 115 mmol/L (98-108); Creatinine, Blood 0.59 mg/dL (0.40-1.00); Glomerular Filtration Rate >60 (60-); Glucose, Blood 77 mg/dL (70-99); Potassium, Blood 3.1 mmol/L (3.5-5.5); Sodium, Blood 144 mmol/L (136-145)
--- NOTE | 2018-07-25 17:16 | NUR ---
PT AOX3 THEN CAN GET VERY CONFUSED WITH PAIN. PT HAS BEEN ALL CURLED UP AND CAN'T STRAIGHTEN HER LEGS OUT. PT HAS BEEN COOPERATIVE AND TAKE HER MEDS WHOLE. SHE IS ABLE TO ANSWER QUESTIONS APPROPRIATELY. PT HAS BEEN RESTING MOST OF THE DAY. WILL CONTINUE TO MONITOR.
--- NOTE | 2018-07-25 18:48 | NUR ---
review of pt meds with nursing. Nursing obtained order today for flexoril. will see if pt needs further diagnositics of pelvis, hip and low back. she is till unable to straighten legs.
--- NOTE | 2018-07-25 23:34 | NUR ---
DISCHARGE SUMMARY: PT LEFT THE FLOOR VIA W/C WITH HER DAUGHTER. NO IV PRESENT TO BE REMOVED. PT RECEIVED EVENING MEDS PRIOR TO D/C. NEW PRESCRIPTIONS CALLED TO [facility].
--- NOTE | 2018-07-26 04:29 | NUR ---
SHIFT SUMMARY: PT IS ALERT AND ORIENTED WITH MINOR CONFUSION. PT IS CALM AND COOPERATIVE WITH CARE. PT CALLS APPROPRIATELY. UNCLEAR HOW CAPABLE THE PT IS OF TRANSFERING, NOT OUT OF BED OVERNIGHT. PERERA INTACT AND DRAINING YELLOW URINE. PT REPORTS BL HIP/LEG PAIN, MEDICATING PER EMAR. PT DENIES NAUSEA, VOMITING, AND SOB. PT SLEPT MUCH OF THE NIGHT WHEN NOT DISTURBED. NO ACUTE CHANGES OR COMPILCATIONS THIS SHIFT. BED IN LOW POSITION, CALL LIGHT WITHIN REACH.
[2018-07-26 05:37] LABS: BASOPHILS ABSOLUTE AUTO 0.07 K/mm3 (0.00-0.23); BASOPHILS PERCENT AUTO 1 % (0-2); EOSINOPHILS ABSOLUTE AUTO 0.42 K/mm3 (0.00-0.68); EOSINOPHILS PERCENT AUTO 7 % (0-6); Hematocrit 26.4 % (33.0-51.0); IMMATURE GRAN ABSOLUTE AUTO 0.02 K/mm3 (0.00-0.10); IMMATURE GRAN PERCENT AUTO 0 % (0-1); LYMPHOCYTES ABSOLUTE AUTO 2.62 K/mm3 (0.84-5.20); LYMPHOCYTES PERCENT AUTO 40 % (21-46); MONOCYTES ABSOLUTE AUTO 0.72 K/mm3 (0.16-1.47); MONOCYTES PERCENT AUTO 11 % (4-13); Mean Corpuscular HGB 22.6 pg (26.0-34.0); Mean Corpuscular HGB Conc 30.3 g/dL (31.5-36.5); Mean Corpuscular Volume 75 fL (80-100); Mean Platelet Volume 8.7 fL (9.1-12.4); NEUTROPHILS ABSOLUTE AUTO 2.64 K/mm3 (1.96-9.15); NEUTROPHILS PERCENT AUTO 41 % (41-73); Platelet Count 614 K/mm3 (150-400); RDW Coefficient Variation 23.8 % (11.7-14.2); RDW Standard Deviation 63.1 fL (35.1-46.3); Red Blood Cell Count 3.54 M/mm3 (3.80-5.20); White Blood Cell Count 6.49 K/mm3 (4.00-11.30)
[2018-07-26 06:03] LABS: Anion Gap 9 mmol/L (6-16); Blood Urea Nitrogen 15 mg/dL (8-24); Bun/Creatinine Ratio 29.4 (12.0-20.0); CO2, Blood 24 mmol/L (21-32); Calcium, Blood 7.8 mg/dL (8.5-10.1); Chloride, Blood 109 mmol/L (98-108); Creatinine, Blood 0.51 mg/dL (0.40-1.00); Glomerular Filtration Rate >60 (60-); Glucose, Blood 80 mg/dL (70-99); Potassium, Blood 3.3 mmol/L (3.5-5.5); Sodium, Blood 142 mmol/L (136-145)
--- NOTE | 2018-07-26 18:29 | NUR ---
SHIFT SUMMARY PATIENT A&O X3. DENIES ANY NAUSE OR SOB THIS SHIFT. RN MEDICATED X2 FOR L HIP, BACK, AND L LEG PAIN. PATIENT REPOSITIONS SELF PRN. PERERA PATENT, KELLE COLORED URINE. RESTED ON AND OFF THROUGHOUT THE SHIFT. BED ALARM IN PLACE, CALL LIGHT WITHIN REACH. NO ACUTE CHANGES. RN WILL CONTINUE TO MONITOR.
--- NOTE | 2018-07-27 04:47 | NUR ---
SHIFT SUMMARY: PT IS ALERT AND ORIENTED WITH MINOR CONFUSION. PT IS TOO PAINFUL IN HER LEGS TO AMBULATE AT THIS TIME, DID SIT ON THE SIDE OF THE BED SEVERAL TIMES. PT CALLS APPROPRIATELY. PT IS CALM AND COOPERATIVE WITH CARE. MEDICATING FOR PAIN PER EMAR. GIVING PRN FLEXIRIL FOR LEG CRAMPS, STILL PERSIST, CALLED DR. SHINE AND RECEIVED AN ORDER FOR IV VALIUM. PT DENIES NAUSEA, VOMITING, AND SOB. BED IN LOW POSITION, CALL LIGHT WITHIN REACH. WILL REPORT TO DAY NURSE.
[2018-07-27 05:15] LABS: BASOPHILS ABSOLUTE AUTO 0.05 K/mm3 (0.00-0.23); BASOPHILS PERCENT AUTO 1 % (0-2); EOSINOPHILS ABSOLUTE AUTO 0.43 K/mm3 (0.00-0.68); EOSINOPHILS PERCENT AUTO 6 % (0-6); Hematocrit 29.5 % (33.0-51.0); IMMATURE GRAN ABSOLUTE AUTO 0.03 K/mm3 (0.00-0.10); IMMATURE GRAN PERCENT AUTO 0 % (0-1); LYMPHOCYTES ABSOLUTE AUTO 1.76 K/mm3 (0.84-5.20); LYMPHOCYTES PERCENT AUTO 24 % (21-46); MONOCYTES ABSOLUTE AUTO 0.78 K/mm3 (0.16-1.47); MONOCYTES PERCENT AUTO 11 % (4-13); Mean Corpuscular HGB 22.6 pg (26.0-34.0); Mean Corpuscular HGB Conc 30.5 g/dL (31.5-36.5); Mean Corpuscular Volume 74 fL (80-100); Mean Platelet Volume 8.8 fL (9.1-12.4); NEUTROPHILS ABSOLUTE AUTO 4.15 K/mm3 (1.96-9.15); NEUTROPHILS PERCENT AUTO 58 % (41-73); Platelet Count 677 K/mm3 (150-400); RDW Standard Deviation 62.9 fL (35.1-46.3); Red Blood Cell Count 3.99 M/mm3 (3.80-5.20)
[2018-07-27 05:39] LABS: Anion Gap 11 mmol/L (6-16); Blood Urea Nitrogen 13 mg/dL (8-24); Bun/Creatinine Ratio 26.5 (12.0-20.0); CO2, Blood 22 mmol/L (21-32); Calcium, Blood 8.7 mg/dL (8.5-10.1); Chloride, Blood 106 mmol/L (98-108); Creatinine, Blood 0.49 mg/dL (0.40-1.00); Glomerular Filtration Rate >60 (60-); Glucose, Blood 108 mg/dL (70-99); Sodium, Blood 139 mmol/L (136-145)
--- NOTE | 2018-07-27 15:13 | NUR ---
SUMMARY PT IS A/O X3-4, GENERALLY PLEASANT/COOPERATIVE AFFECT, HOWEVER THIS AM SHE WAS CRYING/MOANING OUT, STATE SEVERE L HIP PAIN & L EG CRAMPS THAT RADIATE TO BACK & "ALL OVER". SHE WAS UNABLE TO SIT STILL OR CONCENTRATE ON ANYTHING ELSE. ATTEMTS TO MASSAGE LEG ONLY WORSENED PAIN. PRN ULTRAM & ALEVE GIVEN, SCHEDULED K+ GIVEN, HEATING PAD PLACED TO BILAT THIGHS. PAIN FINALLY CONTOLLED. SHE HAS CHOSEN TO SIT UP ON BEDSIDE W HOB ELEVATED, STATE UNABLE TO LIE DOWN D/T INCREASE IN PAIN, STATE THIS IS ONLY COMFORTABLE POSITION. DR ORDONEZ IN TO SEE HER THIS AFTERNOON STATE WILL CHECK MG LEVEL IN AM. BLE WOUNDS DRY, CRUSTY YELLOW, MINIMAL REDNESS SURROUNDING AREA, WOUND CARE/DRSG CHANGE PROVIDED. IV ANTIBX CONT. BUTTUCKS/ALANA AREA EXCORIATIED. PT STATE UNABLE TO AMBULATE OR BR WT @ THIS TIME D/T PAIN. PERERA CATH IS IN PLACE R/T SBD. PLAN TO GET PT UP TO RECLINER THIS AFTERNOON, SENIOR LABORATORY TECHNICIAN HOPEFUL TO PROVIDE BEDBATH. VSS.
--- NOTE | 2018-07-28 03:59 | NUR ---
SHIFT SUMMARY: PT IS ALERT AND ORIENTED WITH MINOR CONFUSION. PT IS CALM AND COOPERATIVE WITH CARE. PT CALLS APPROPRIATELY. PT TOO WEAK TO AMBULATE AT THIS TIME. CATHETER PATENT AND DRAINING YELLOW URINE. PT CONTINUES TO REPORT INTERMITTENT CRAMPING LEG PAIN, MEDICATING PER EMAR. PT DENIES NAUSEA, VOMITING, AND SOB. NO ACUTE CHANGES OVERNIGHT. WILL REPORT TO DAY NURSE.
[2018-07-28 05:54] LABS: BASOPHILS ABSOLUTE AUTO 0.07 K/mm3 (0.00-0.23); BASOPHILS PERCENT AUTO 1 % (0-2); EOSINOPHILS PERCENT AUTO 5 % (0-6); Hematocrit 30.9 % (33.0-51.0); Hemoglobin 9.5 g/dL (11.5-16.0); IMMATURE GRAN ABSOLUTE AUTO 0.04 K/mm3 (0.00-0.10); IMMATURE GRAN PERCENT AUTO 1 % (0-1); LYMPHOCYTES ABSOLUTE AUTO 2.28 K/mm3 (0.84-5.20); LYMPHOCYTES PERCENT AUTO 30 % (21-46); MONOCYTES ABSOLUTE AUTO 0.85 K/mm3 (0.16-1.47); MONOCYTES PERCENT AUTO 11 % (4-13); Mean Corpuscular HGB 22.7 pg (26.0-34.0); Mean Corpuscular HGB Conc 30.7 g/dL (31.5-36.5); Mean Corpuscular Volume 74 fL (80-100); Mean Platelet Volume 8.9 fL (9.1-12.4); NEUTROPHILS ABSOLUTE AUTO 3.98 K/mm3 (1.96-9.15); NEUTROPHILS PERCENT AUTO 52 % (41-73); Platelet Count 607 K/mm3 (150-400); RDW Coefficient Variation 23.9 % (11.7-14.2); RDW Standard Deviation 62.8 fL (35.1-46.3); Red Blood Cell Count 4.18 M/mm3 (3.80-5.20); White Blood Cell Count 7.62 K/mm3 (4.00-11.30)
[2018-07-28 06:04] LABS: Albumin, Blood 3.4 g/dL (3.4-5.0); Anion Gap 9 mmol/L (6-16); Blood Urea Nitrogen 16 mg/dL (8-24); Bun/Creatinine Ratio 28.4 (12.0-20.0); CO2, Blood 21 mmol/L (21-32); Calcium, Blood 8.9 mg/dL (8.5-10.1); Chloride, Blood 107 mmol/L (98-108); Creatinine, Blood 0.56 mg/dL (0.40-1.00); Glomerular Filtration Rate >60 (60-); Glucose, Blood 104 mg/dL (70-99); Magnesium, Blood 1.8 mg/dL (1.6-2.4); Phosphorus, Blood 3.6 mg/dL (2.5-4.9); Potassium, Blood 4.2 mmol/L (3.5-5.5); Sodium, Blood 137 mmol/L (136-145)
--- NOTE | 2018-07-28 19:29 | NUR ---
SUMMARY- PT ALERT AND ORIENTED, SAT AT THE EDGE OF THE BED ALL DAY WITH LEGS DEPENDANT- STATES SHE CAN'T ELEVATE BECAUSE THAT'S THE ONLY POSITION COMFORTABLE FOR BACK AND HIPS. PT IS HAVING BACK AND LEG PAIN MEDICATED WITH NAPROXIN, BACLOFIN, NEURONTIN AND VALIUM TODAY WITH SUFFICITNT RELEIF. PT HAS INVOLUNTARY CONTRACTURES OF HER LE WITH PAIN OR OTHER STIM. DR MARCELO IN TO SEE PT AND VISUALIZED LEGS. RN REPLACED DRESSING ADDING WOUND GEL TO SCABS, VASELINE GAUZE TO OPEN WOUNDS, ABD, KERLEX AND SHERIDAN. DRESSING TO GLUT INTACT. PERERA CATH INTACT AND DRAINING. PT IS INCONT SO PERERA PREVENTS FURTHER BREAKDOWN. PT TOLERATING FOOD AND FLUID. HAD LOW BP THIS PM, CALLED DR MARCELO AND GOT ORDER FOR FLUID BOLUS IN WHICH BP RESPONDED AND CAME UP APPROPRIATELY.
--- NOTE | 2018-07-29 03:49 | NUR ---
SHIFT SUMMARY THE PATIENT PRESENTED THIS SHIFT WITH VITALS WNL, A&O TO SELF AND WITH LUNGS SOUNDS THAT WERE CLEAR, BUT DIM AT THE BASES. THE PATIENT HAS BEEN SETTING ON BEDSIDE MOST OF THE SHIFT, STATING THAT SHE FEELS BETTER AND HER LEGS DO NOT CRAMP MUCH. THE PATIENT HAS SUFFERED WITH LEG CRAMPS OFF AND ON ALL SHIFT. THE PATIENT RECIEVED 2.5 MG OF VALIUM FOR HER CRAMPS. THE PATIENT IIS RESTING AT THIS TIME, WILL CONTINUE TO MONITOR.
--- NOTE | 2018-07-29 17:59 | NUR ---
SHIFT SUMMARY. PT LETHARGIC TODAY, ORIENTATED TO SELF, PLACE, YEAR, AND MONTH. PT SLEPT ON AND OFF THROUGHOUT MOST OF SHIFT IN BED, INTERMITTENT CONSISTENT BLE "CRAMP" LIKE PAIN THAT APPEAR TO BE SPASMS THAT COME AND GO. LEGS ARE CONTRACTED, ATTEMPTED ROM AND STRETCHING, LEGS ARE VERY DIFFICULT TO MOVE. MEDICATED WITH PRN ULTRAM, FLEXERIL, VALIUM, AND NAPRSYN ORDERED WITH SOME RELIEF. PT DENIED SOB, N/V. EXCORIATION TO BUTTOCKS CLEANSED AND BARRIER CREAM APPLIED, MEPILEX REMAINS IN PLACE.
--- NOTE | 2018-07-30 04:11 | NUR ---
SHIFT SUMMARY THE PATIENT PRESENTED THIS SHIFT WITH VITALS WNL, A&O TO SELF AND WITH LUNG SOUNDS THAT WERE CLEAR, BUT DIM IN THE BASES. THE PATIENT HAD THE DRESSING ON HER LEFT LEG CHANGED ON D/S, THE LEG WAS CHANGED ON THIS SHIFT. THE PATIENT HAS HAD A POWER GLIDE PLACED DURNING D/S. THE PATIENT CONTINUES TO HAVE LEG CRAMPS, OFF AND ON, BUT IT DOES NOT SEEM OFTEN PREVIOUS LAMBSKIN TRIMMER. THE PATIENT HAS ALSO SLEPT MORE THIS SHIFT THAN LAST NIGHT. THE PATIENT IS SLEEPING AT THIS TIME, WILL CONTINUE TO MONITOR.
--- NOTE | 2018-07-30 11:10 | NUR ---
Visited with iZna this morning. She is sitting up at the edge of her bed, she drifts off to sleep and then startles awakes c/o leg and left hip spasms and cramping. She moans and becomes anxious and then when the pain subsides she drifts back off to sleep again. EMAR reviewed. Pt is taking tramadol, neurontin, flexeril and valium for pain. Her neurontin dose has recently been adjusted with daytime doses added. Pt reports that she has been having these spasms "for a long time." She responded well to this account underwriter massaging her left knee when she was c/o of pain. Offered a k-pad and placed that on pt's left upper leg. Discussed breathing and distraction techniques. Pt responded well to distraction techniques while this account underwriter was in the room. When this account underwriter left the room, pt was moaning and crying out in pain. Pt's progress note mentions a diagnosis of bipolar disease. It doesn't appear that pt takes any medication to manage her bipolar disease. Pt is planning to be discharged to [facility] at [facility]. to continue to follow for symptom management. Per MD progress notes, pt's medications for pain management are being adjusted.
--- NOTE | 2018-07-30 16:53 | NUR ---
SUMMARY PT IS A/O X3-4. SHE CONTINUES TO HAVE INTERMITTANT L HIP PAIN & LEG CRAMPS. BLE CONTRACTED SOMEWHAT, SHE IS UNABLE TO AMBULATE OR BR WT @ THIS TIME. PHYTHER ATTEMPTED TX TODAY HOWEVER PT BEGAN YELLING OUT, MOANING IN PAIN. THERAPY DISCONTINUED. HAVE GIVEN MULT MEDS FOR INTERMITTANT RELEIF, ULTRAM, TYLENOL, ALEVE, GABAPENTIN & IV DIAZAPAM. SHE IS MOST COMFORTABLE RESTING ON R SIDE HUNCHED OVER WITH ONE OR BOTH FEET HANGING OVER BEDSIDE. PT STATE HX OF PAIN/PROBLEMS WITH L HIP & BILAT KNEES. SOCSERV STATE THIS AM THAT ARRANGEMENTS BEING MADE FOR PT TO TRANSFER TO [facility] WHEN APPROPRIATE. [facility] BEEN [facility] TODAY TO SCREEN. PT HAS ULCER R BUTTOCK & ULCERS BACK OF BOTH ANKLES, WOUND CARE/DRSG CHANGE PROVIDED TODAY. BP RUNS LOW @ X'S, LAST , WILL MX.
[2018-07-31 05:11] LABS: BASOPHILS ABSOLUTE AUTO 0.05 K/mm3 (0.00-0.23); BASOPHILS PERCENT AUTO 1 % (0-2); EOSINOPHILS ABSOLUTE AUTO 0.29 K/mm3 (0.00-0.68); EOSINOPHILS PERCENT AUTO 4 % (0-6); Hematocrit 28.4 % (33.0-51.0); Hemoglobin 8.5 g/dL (11.5-16.0); IMMATURE GRAN ABSOLUTE AUTO 0.04 K/mm3 (0.00-0.10); IMMATURE GRAN PERCENT AUTO 1 % (0-1); LYMPHOCYTES ABSOLUTE AUTO 1.74 K/mm3 (0.84-5.20); LYMPHOCYTES PERCENT AUTO 24 % (21-46); MONOCYTES ABSOLUTE AUTO 0.94 K/mm3 (0.16-1.47); MONOCYTES PERCENT AUTO 13 % (4-13); Mean Corpuscular HGB 22.4 pg (26.0-34.0); Mean Corpuscular HGB Conc 29.9 g/dL (31.5-36.5); Mean Corpuscular Volume 75 fL (80-100); Mean Platelet Volume 8.6 fL (9.1-12.4); NEUTROPHILS ABSOLUTE AUTO 4.24 K/mm3 (1.96-9.15); NEUTROPHILS PERCENT AUTO 58 % (41-73); Platelet Count 548 K/mm3 (150-400); RDW Coefficient Variation 24.3 % (11.7-14.2); RDW Standard Deviation 64.9 fL (35.1-46.3)
--- NOTE | 2018-07-31 05:45 | NUR ---
*SHIFT SUMMARY* PATIENT IS ALERT AND ORIENTED. PATIENT COMPLAINS OF LEG CRAMPING AND PAIN THROUGHOUT THE NIGHT. PATIENT WAS MEDICATED ORDERED. CALLED HOSPITALIST THROUGHOUT THE NIGHT TO SEE IF WE SHOULD RECHECK A POTASSIUM LEVEL. NO NEW ORDERS TO DO SO. PATIENT USES CALL LIGHT APPROPRIATELY. DRESSINGS ON PATIENTS LOWER LEGS ARE C/D/I. PATIENT ON ROOM AIR. NO NEW CHANGES IN PT'S CONDITION. PATIENT YELLED IN PAIN THROUGHOUT THE NIGHT.
[2018-07-31 06:03] LABS: Albumin, Blood 3.2 g/dL (3.4-5.0); Anion Gap 7 mmol/L (6-16); Blood Urea Nitrogen 11 mg/dL (8-24); CHOL/HDL RATIO 4.9; CO2, Blood 28 mmol/L (21-32); Calcium, Blood 8.9 mg/dL (8.5-10.1); Chloride, Blood 103 mmol/L (98-108); Cholesterol 165 mg/dL (50-200); Creatinine, Blood 0.48 mg/dL (0.40-1.00); Glomerular Filtration Rate >60 (60-); Glucose, Blood 107 mg/dL (70-99); HDL Cholesterol 34 mg/dL (>39); LDL/HDL RATIO 3.1; Low Density Lipoprotein Chol 107 mg/dL (0-110); Phosphorus, Blood 3.2 mg/dL (2.5-4.9); Potassium, Blood 4.1 mmol/L (3.5-5.5); Sodium, Blood 138 mmol/L (136-145); Triglycerides 121 mg/dL (30-160); Very Low Density Lipoprot Chol 24 mg/dL (6-32)
--- NOTE | 2018-07-31 10:35 | NUR ---
Met with Zina this morning. She is laying in bed on her right side. She had an ultrasound on her legs this morning according to nursing. Pt required IV narcotics for comfort during the ultrasound. Nursing reports pt was comfortable after receiving the narcotics. Pt reports she didn't sleep well last night d/t pain. Pt given a warm blanket for comfort this moring.
--- NOTE | 2018-07-31 18:33 | NUR ---
SUMMARY PT HAD BLE VENOUS US ORDERED THIS AM, SHE WAS UNABLE TO TOLERATE, SCREAMING IN PAIN. DR ORDONEZ NOTIFIED, ORDERED 2 MG IV MORPHINE. EFFECTIVE. PT WAS ABLE TO TOLERATE PROCEDURE & HAS HAD A MUCH BETTER DAY TODAY FAR CONTROL OF LEG PAIN & CRAMPING. HAVE GIVEN ULTRAM & FLEXERIL IN ADDITION PRN. DRSG BILAT ANKLES & R BUTTOCKS CDI. PT REFUSES TO LAY DOWN OR GET UP TO CHAIR, SHE CONTINUES TO SIT UP ON BEDSIDE ON R SIDE, HUNCHED, STATE ONLY WAY SHE CAN REST COMFORTABLY. TRACK SWEEPER STATE PERERA CATH HAS BEEN IN FOR APPROX [address]EEK, DR ORDONEZ NOTIFIED, STATE CONTINUE REST OF TODAY & WILL REMOVE IN AM. BP HAS RUN LOW TODAY, 88/49, WILL CONT TO MX. PLAN CONTINUES FOR HER TO TRANSFER TO [facility] WHEN APPROP.
--- NOTE | 2018-08-01 05:17 | NUR ---
*SHIFT SUMMARY* PATIENT IS ALERT AND ORIENTED. PATIENT SLEPT A DECENT AMOUNT THROUGHOUT THE NIGHT. THERE WAS LESS YELLING OUT IN PAIN. PATIENT'S BLOOD PRESSURE WAS A LITTLE LOW AND IT WAS NOTED TO BE ABOUT THE SAME THROUGHOUT THE DAY. THIS RN CALLED THE HOSPITALIST TO SEE IF THEY WANTED TO ORDER ANYTHING TO INCREASE THE BP. NEW ORDERS FOR A STAT LACTIC ACID DONE FOLLOWED BY 1L OF NS BOLUS. LACTIC ACID CAME BACK WNL. BOLUS GIVEN, AFTER BOLUS WAS COMPLETED SENIOR NET DEVELOPER RETOOK PATIENT'S VITALS TO SEE IF BP INCREASED. PATIENT REFUSED TO LAY ON BACK. THEREFORE HER BP WAS TAKEN ON HER SIDE AND WAS STILL LOW. THIS RN TRIED EDUCATING THE PT THE IMPORTANCE OF GETTING BP ON BACK. PATIENT CONTINUED TO REFUSE. DRESSING CHANGED ON POWER GLIDE. BP THIS AM INCREASED SOME. MEDICATED FOR LEG SPASMS ORDERED SEE EMAR. CALL LIGHT WITHIN REACH, BED LOWERED AND LOCKED WITH ALARM ON.
[2018-08-01 05:32] LABS: BASOPHILS ABSOLUTE AUTO 0.08 K/mm3 (0.00-0.23); BASOPHILS PERCENT AUTO 1 % (0-2); EOSINOPHILS ABSOLUTE AUTO 0.32 K/mm3 (0.00-0.68); EOSINOPHILS PERCENT AUTO 4 % (0-6); Hematocrit 28.3 % (33.0-51.0); Hemoglobin 8.6 g/dL (11.5-16.0); IMMATURE GRAN ABSOLUTE AUTO 0.03 K/mm3 (0.00-0.10); IMMATURE GRAN PERCENT AUTO 0 % (0-1); LYMPHOCYTES ABSOLUTE AUTO 2.01 K/mm3 (0.84-5.20); LYMPHOCYTES PERCENT AUTO 26 % (21-46); MONOCYTES ABSOLUTE AUTO 0.87 K/mm3 (0.16-1.47); MONOCYTES PERCENT AUTO 11 % (4-13); Mean Corpuscular HGB 22.5 pg (26.0-34.0); Mean Corpuscular HGB Conc 30.4 g/dL (31.5-36.5); Mean Corpuscular Volume 74 fL (80-100); Mean Platelet Volume 8.9 fL (9.1-12.4); NEUTROPHILS ABSOLUTE AUTO 4.42 K/mm3 (1.96-9.15); NEUTROPHILS PERCENT AUTO 57 % (41-73); Platelet Count 517 K/mm3 (150-400); RDW Coefficient Variation 24.1 % (11.7-14.2); RDW Standard Deviation 63.3 fL (35.1-46.3); Red Blood Cell Count 3.82 M/mm3 (3.80-5.20); White Blood Cell Count 7.73 K/mm3 (4.00-11.30)
[2018-08-01 06:28] LABS: Albumin, Blood 3.1 g/dL (3.4-5.0); Anion Gap 6 mmol/L (6-16); Blood Urea Nitrogen 9 mg/dL (8-24); Bun/Creatinine Ratio 16.8 (12.0-20.0); CO2, Blood 28 mmol/L (21-32); Calcium, Blood 8.6 mg/dL (8.5-10.1); Chloride, Blood 103 mmol/L (98-108); Creatinine, Blood 0.54 mg/dL (0.40-1.00); Glomerular Filtration Rate >60 (60-); Glucose, Blood 104 mg/dL (70-99); Phosphorus, Blood 3.7 mg/dL (2.5-4.9); Sodium, Blood 137 mmol/L (136-145)
[2018-08-01 08:49] LABS: Percent Saturation 4.9 % (15.0-50.0)
--- NOTE | 2018-08-01 17:53 | NUR ---
SHIFT SUMMARY PT AXO, PLEASANT AND COOPERATIVE WITH MOST CARE, THOUGH AT BEGINNING OF SHIFT, PT REFUSED REPOSITIONING UNTIL NURSE EDUCATED HER ABOUT SKIN BREAKDOWN. VSS. PT MEDICATED FOR PAIN AND MUSCLE SPASM PER EMAR. PERERA DISCONTINUED. PT INCONTINENT OF BOWEL AND BLADDER, ATTENDS CHANGED PRN. DRESSING CHANGES COMPLETED TODAY, CDI AT THIS TIME. BED IN LOW POSITION, CALL LIGHT WITHIN REACH, BED ALARM ON.
--- NOTE | 2018-08-02 03:37 | NUR ---
SHIFT SUMMARY PATIENT HAD NO ACUTE CHANGE OBSERVED THIS SHIFT. PATIENT ABLE TO REPOSITION WITH ONE ASSIST. AXOX 3 AND BEDFAST BASELINE. TAKES MEDS WHOLE WITH WATER. VSS/AFEBRILE. REPORTS MUSCLE SPASM AND RECEIVED FLEXORIL PER EMAR. POWERGLIDE MARY GRACE INTACT. IV ABX INFUSED. BLE DRESSING C/D/I. CBG 112. DENIES SOB AND N/V. CALL LIGHT IN REACH. BED IN LOWEST POSITION. WILL CONTINUE TO MONITOR UNTIL DAY SHIFT NURSE ASSUMES CARE.
[2018-08-02 13:44] LABS: Stool Occult Blood Guaiac 1 Pos (Neg)
--- NOTE | 2018-08-02 15:58 | NUR ---
SHIFT SUMMARY ADMITTED FOR CELLULITIS IN THE BLE. PT'S POWERGLIDE FAILED. NEW IV PLACED IN LEFT HAND. PT IS ON ROOM AIR. A&O X3, INCONTINENT. PT HAS HX OF DIABETES, IS ACHS BUT HAS NOT NEEDED INSULIN COVERAGE. SHE TAKES HER MEDS WHOLE WITH WATER. SHE IS BEDFAST. FLEXERIL IS AVAILABLE TO HELP WITH SEVERE MUSCLE SPASMS. PLAN IS FOR DC TO [facility]. SHE DOES HAVE A QUARTER SIZE PRESSURE ULCER ON HER RT. BUTTOCK. PT IS SOMETIMES NOT COOPERATIVE WITH CARE, REFUSED PT AND OT ON PREVIOUS SHIFTS AND REFUSED TO HAVE HER WOUND RE-DRESSED TODAY. PT HAS POOR CIRCULATION.
--- NOTE | 2018-08-03 03:07 | NUR ---
SHIFT SUMMARY PATIENT HAD NO ACUTE CHANGES OBSERVED DURING THE SHIFT. PATIENT ABLE TO REPOSITION WITH 1-2 ASSIST. AXOX 3 AND BEDFAST. TAKES MEDS WHOLE WITH WATER. VSS/AFEBRILE. PATIENT REPORTED LEG MUSCLE SPASMS AND RECEIVED FLEXORIL PER EMAR. PIV REMAINS INTACT. IV ABX INFUSED. DENIES SOB AND N/V. PATIENT REFUSED BLE DRESSING AND WANTS TO AIR OUT LEGS. CBG 112 AND NO COVERAGE NEEDED. CALL LIGHT IN REACH. BED IN LOWEST POSITION. WILL CONTINUE TO MONITOR UNTIL DAY SHIFT NURSE ASSUMES CARE.
[2018-08-03 05:34] LABS: BASOPHILS ABSOLUTE AUTO 0.06 K/mm3 (0.00-0.23); BASOPHILS PERCENT AUTO 1 % (0-2); EOSINOPHILS ABSOLUTE AUTO 0.29 K/mm3 (0.00-0.68); EOSINOPHILS PERCENT AUTO 4 % (0-6); Hematocrit 30.5 % (33.0-51.0); Hemoglobin 9.1 g/dL (11.5-16.0); IMMATURE GRAN ABSOLUTE AUTO 0.02 K/mm3 (0.00-0.10); IMMATURE GRAN PERCENT AUTO 0 % (0-1); LYMPHOCYTES ABSOLUTE AUTO 1.81 K/mm3 (0.84-5.20); LYMPHOCYTES PERCENT AUTO 23 % (21-46); MONOCYTES ABSOLUTE AUTO 0.98 K/mm3 (0.16-1.47); MONOCYTES PERCENT AUTO 12 % (4-13); Mean Corpuscular HGB 22.2 pg (26.0-34.0); Mean Corpuscular HGB Conc 29.8 g/dL (31.5-36.5); Mean Corpuscular Volume 75 fL (80-100); Mean Platelet Volume 9.2 fL (9.1-12.4); NEUTROPHILS ABSOLUTE AUTO 4.82 K/mm3 (1.96-9.15); NEUTROPHILS PERCENT AUTO 60 % (41-73); Platelet Count 421 K/mm3 (150-400); RDW Coefficient Variation 24.3 % (11.7-14.2); RDW Standard Deviation 63.7 fL (35.1-46.3); Red Blood Cell Count 4.09 M/mm3 (3.80-5.20); White Blood Cell Count 7.98 K/mm3 (4.00-11.30)
[2018-08-03 05:59] LABS: Anion Gap 9 mmol/L (6-16); Blood Urea Nitrogen 14 mg/dL (8-24); Bun/Creatinine Ratio 25.3 (12.0-20.0); CO2, Blood 23 mmol/L (21-32); Calcium, Blood 8.9 mg/dL (8.5-10.1); Chloride, Blood 103 mmol/L (98-108); Creatinine, Blood 0.55 mg/dL (0.40-1.00); Glomerular Filtration Rate >60 (60-); Glucose, Blood 111 mg/dL (70-99); Phosphorus, Blood 3.8 mg/dL (2.5-4.9); Sodium, Blood 135 mmol/L (136-145)
--- NOTE | 2018-08-03 15:57 | NUR ---
SHIFT SUMMARY PT ADMITTED FOR UTI/PNEUMONIA, W/CONCERNS OF CELLULITIS TO THE BACK OF THE LEGS. PT EXPERIENCED MULTIPLE MUSCLE SPASMS THROUGHOUT SHIFT BUT DID NOT ASK FOR PAIN MEDS. I HAVE GIVEN FLEXERIL, AND WILL ONCE MORE. THE LIMIT IS 3 FLEXERIL PER 24 HRS. EXPECTED TO DC TO REHAB SOON. PT SOMETIMES REFUSES CARE AND MEDICATIONS. PT REFUSED PHYSICAL THERAPY. PT IS ACHS, ON ROOM AIR. HAS HOME HEALTH CARE, BUT POSSIBLY THEIR HOURS ARE INSUFFICIENT FOR HER NEEDS.
--- NOTE | 2018-08-04 02:23 | NUR ---
SHIFT SUMMARY PATIENT HAD NO ACUTE CHANGES OBSERVED. AXO X3 AND BEDFAST. PIV REMAINS INTACT. IV ABX INFUSED. CBG 116. PATIENT REPORTS MUSCLE SPASM AND RECIEVED FLEXERIL PER EMAR. TWO PERSON ASSIST TO REPOSITION. DENIES SOB AND N/V. PATIENT REFUSES BLE LEGS TO BE REWRAPPED. BED IN LOWEST POSITION. CALL LIGHT IN REACH. WILL CONTINUE UNTIL DAY SHIFT NURSE ASSUMES CARE.
--- NOTE | 2018-08-04 15:43 | NUR ---
PATIENT A/OX4, CALLS APPROPRIATELY FOR ASSISTANCE. UP IN CHAIR OR SIDE OF BED FOR MEALS. INCONTINENT OF URINE, WEARING ATTENDS. VSS THIS SHIFT. BLOOD SUGARS STABLE AND DID NOT REQUIRE COVERAHE THIS SHIFT. FLEXERIL AND TYLENOL GIVEN TO CONTROL LEG PAIN/SPASMS. LUNGS CLEAR/DIM , ON RA ULCER TO BLE WITH SCABS AND ARE OPEN TO AIR. 22G IV TO L FA WNL AND SL BETWEEN ABX. NO ACUTE CHANGES THIS SHIFT.
--- NOTE | 2018-08-05 04:40 | NUR ---
MEDICAL PATHOLOGIST SUMMARY NO ACUTE CHANGES THIS SHIFT. PT AAOX4 AND COOPERATIVE WITH CARE. CALLS APPROPRIATELY FOR ASSISTANCE. PT STILL DENIES DRESSINGS TO BE APPLIED TO BLE, HOWEVER WOUNDS ARE DRY AND SEEM TO BE HEALING WELL WITHOUT DRESSINGS. PT DENIES PAIN IN LEGS BUT DOES COMPLAIN OF MUSCLE SPASMS IN HER HIPS AND UPPER THIGHS. TREATED WITH TYLENOL AND FLEXERIL WITH GOOD RELIEF. CBG CONTINUES IN 120'S, REQUIRING NO INSULIN COVERAGE. VSS, WILL CONTINUE TO MONITOR.
--- NOTE | 2018-08-05 19:23 | NUR ---
DISCHARGE SUMMARY YUDY COMPLAINED OF PAIN TODAY AND RECEIVED PRESCRIBED PAIN MED PER EMAR AND FLEXERIL. INCONTINENT AND Q2 TURN ALLOWS, SHE HAS A PRESSURE ULCER ON HER R HIP/BUTTOCK AREA. EXPLAINED IMPORTANCE OF MOVING AROUND, BUT MOVING IS MUCH MORE PAINFUL THAN HER PRESSURE ULCER (DUE TO HER MUSCLE SPASMS), SO SHE DOESN'T LIKE TO. PICS TAKEN OF HER PRESSURE ULCER AND IN CHART. LEG WOUNDS OPEN TO AIR PER HER PREFERENCE, LOOKING BETTER THAN UPON ADMIT. SAT UP TO DANGLE AT EDGE OF BED FOR BREAKFAST AND LUNCH. CBGS DCD. WCTM
--- NOTE | 2018-08-06 05:44 | NUR ---
LOUISA SUMMARY PT HAS HAD NO ACUTE EVENTS OR CHANGES DURING THE NIGHT. MEDICATED X 2 WITH TYLENOL AND X1 WITH PO FLEXERIL FOR SAME C/O'S BACKPAIN. PT SLEPT WELL, WILL CONTINUE TO MONITOR.
--- NOTE | 2018-08-06 18:19 | NUR ---
SHIFT SUMMARY PATIENT HAS BEEN INCONTINENT THROUGHOUT THE ENTIRITY OF THE SHIFT TODAY. USED BEDPAN DUE TO LIFT REQUIREMENTS. SHE HAD A COMPLAINT OF PAIN, MEDICATED PER EMAR. SHE IS ALERT AND ORIENTED. NO ACUTE ISSUES NOTED.
--- NOTE | 2018-08-07 01:07 | NUR ---
TYLENOL AND FLEXERIL GIVEN PER PT REQUEST FOR BACK, HIP AND LEG PAIN. WILL MONITOR.
--- NOTE | 2018-08-07 03:56 | NUR ---
SHIFT SUMMARY: PT ABLE TO STATE NEEDS APPROPRIATELY, MEDICATED SCHEDULED NORCO FOR PAIN IN HIPS, LEGS, AND LOWER BACK WHICH HAD LITTLE PAIN RELIEF. LATER PT WAS GIVEN FLEXERIL AND TYLENOL FOR PAIN AND PT RESTED BETTER. ULCERS TO BLE ARE DRY AND HEALING. LEGS ELEVATED ON PILLOW FOR COMFORT. BEDPAN OFFERED DURING SHIFT. NO ACUTE CHANGES. WILL CONTINUE TO MONITOR AND PROVIDE CARE UNTIL SHIFT REPORT.
--- NOTE | 2018-08-07 16:13 | NUR ---
SHIFT SUMMARY- PT HAD C/O PAIN THIS MORNING AND WAS MEDICATED WITH HER FLEXERIL AND SCHEDULED HYDROCODONE. PT STATED THE PAIN IS MUCH IMPROVED. SHE HAS CONTRACTURES OF THE LEGS, IF THE PT FOCUSES ON THE LEGS SHE CAN MAKE THEM RELAX. STAFF HAVE ENCOURAGED HER TO DO THIS FREQUENTLY T/O THE SHIFT. DR REQUESTED PT BE UP TO THE EOB FOR ALL MEALS, PT DID THIS FOR LUNCH AND PLANS TO FOR DINNER SHORTLY. PT HAS BOUTS OF INCONTINENCE ATTENDS IN PLACE, USES THE BED BAPTISTE FOR URINE, NEEDS MEPILEX CHANGE FOR EVERY VOID, HAS AN AREA THAT IS THE SIZE OF A QUARTER THAT IS OPEN, COVERED WITH THE MEPILEX.
--- NOTE | 2018-08-07 18:38 | NUR ---
pt alert resting will send volunteers to visit for diversion and support
--- NOTE | 2018-08-08 06:29 | NUR ---
08/08/18 0615 SLEEPING WELL NOW. VITALS REMAIN STABLE. FREQUENT C/O "LEGS HURTING'. SEE MAR FOR MEDS GIVEN. PT DANGLED ON SIDE FOR 20 MINUTES EARLIER WHEN HAVING DISCOMFORT.
[2018-08-08] MEDS ORDERED: GABA100 PO (16:17)
[2018-08-08] MEDS ORDERED: GABA300 PO (16:18)
[2018-08-08] MEDS ORDERED: VITAMIN C500 M1 PO (16:19)
[2018-08-08] MEDS ORDERED: Ferrous Sulfat325 M2 PO (16:19)
[2018-08-08] MEDS ORDERED: BACL10 PO (16:20)
[2018-08-08] MEDS ORDERED: CYCL10 PO (16:21)
[2018-08-08] MEDS ORDERED: CILO100 PO (16:21)
[2018-08-08] MEDS ORDERED: SENN187 PO (16:22)
[2018-08-08] MEDS ORDERED: DOCU100 PO (16:22)
--- NOTE | 2018-08-08 17:21 | NUR ---
PT FREQUENTLY NEEDS TO USE THE BEDPAN, WHEN BEING POSITIONED SHE CAN FLAIL HER ARMS FOR FEAR THAT SHE WILL FALL, HER NAILS WERE JAGED AND SHARP AND POSED A RISK. STAFF FILED THE NAILS EVEN AND SMOOTH TO PROTECT PT AND STAFF FROM SKIN INJURY. PT NOT AGRESSIVE, JUST FEARFUL. PT TOLLERATED WELL. PT RECIEVED A FULL BEDBATH TODAY, SHE WAS DISCHARGED TO [facility] AND TAKEN VIA W/C TRANSPORT. CALLED [facility] TO GIVE REPORT SPOKE TO HANK.
== END 2018-08-08 17:17 | DRG 603 ==
LOC: ER 10:29 → MEDS 15:11 → ERHOLD 15:11 → MEDS 15:59
PROVIDERS: Emergency Medicine; Internal Medicine; ADMIT Family Medicine
DX: L03.317 Cellulitis of buttock (principal); L03.116 Cellulitis of left lower limb; L97.129 Non-pressure chronic ulcer of left thigh with unspecified severity; L97.119 Non-pressure chronic ulcer of right thigh with unspecified severity; L97.829 Non-pressure chronic ulcer of other part of left lower leg with unspecified severity; L97.819 Non-pressure chronic ulcer of other part of right lower leg with unspecified severity; L03.115 Cellulitis of right lower limb; L89.522 Pressure ulcer of left ankle, stage 2; M62.838 Other muscle spasm; M79.7 Fibromyalgia; D50.9 Iron deficiency anemia, unspecified; D47.3 Essential (hemorrhagic) thrombocythemia; E11.9 Type 2 diabetes mellitus without complications; I25.10 Atherosclerotic heart disease of native coronary artery without angina pectoris; K21.9 Gastro-esophageal reflux disease without esophagitis; F31.9 Bipolar disorder, unspecified; G62.9 Polyneuropathy, unspecified; I10 Essential (primary) hypertension; F17.210 Nicotine dependence, cigarettes, uncomplicated; Z78.1 Physical restraint status; E87.6 Hypokalemia; G89.29 Other chronic pain
CPT/HCPCS: 36415; 36416; 51702; 80048; 80053; 80061; 80069; 81001; 82272; 82550; 82728; 82947; 83036; 83540; 83550; 83605; 83735; 84443; 85025; 85027; 93925; 96361; 96374; 96375; 97110; 97162; 97530; 99285-25; C1751; J0690; J1650; J2060; J2270; J2405; J3010; J3360; J7030; J7050; J7120

== ENCOUNTER → 2018-12-06 | Outpatient (CLI) | payer OTHER ==
[~2018-12-06] MED LIST changes: +**INCOMPLETE MED REC; +BACL10 PO; +CILO100 PO; +DOCU100 PO; +Ferrous Sulfat325 M2 PO; +GABA300 PO; +IRON PO; +LISI5 PO; +Loratadine10 MG PO; +Metformin HCl500 MG PO; +Omeprazole20 M1 PO; +POTCHL10ER PO; +SENN187 PO; +SLEEPING50 MG PO; +VITAMIN C500 M1 PO
[2018-12-06 10:38] LABS: Bilirubin, Urine Neg (Neg); Blood, Urine 4+ (Neg); Glucose Qualitative, Urine Neg (Neg); Ketones, Urine Neg (Neg); Leukocyte Esterase, Urine 3+ (Neg); Nitrite, Urine Neg (Neg); Protein, Urine 3+ (Neg); Urobilinogen, Urine NORM (Normal)
[2018-12-06 10:48] LABS: Appearance, Urine Turbid (Clear); Color, Urine Yellow (P-Yellow)
[2018-12-06 10:49] LABS: Squamous Epithelial Cells Few /hpf (Few); White Blood Cells, Urine 25-50 /hpf (0-5)
[2018-12-06 10:50] LABS: Amorphous Mod (0-Heavy); Bacteria Many /hpf; Triple Phosphate Crystals Many /hpf
== END | disposition home or self-care (01) ==
LOC: LAB RH 10:25 → EDSTATUS 15:35
PROVIDERS: Physician Assistant
DX: N39.0 Urinary tract infection, site not specified (principal)
CPT/HCPCS: 81001; 87086

== ENCOUNTER → 2018-12-09 | Outpatient (CLI) | payer OTHER | END | disposition home or self-care (01) | LOC: LAB SHORT 12:14 → LAB 12:14 | DX: N39.0 Urinary tract infection, site not specified (principal); R30.0 Dysuria | CPT/HCPCS: 87077; 87086; 87186 ==

== ENCOUNTER → 2020-07-15 | Outpatient (CLI) | payer OTHER ==
[2020-07-15 15:01] LABS: BASOPHILS ABSOLUTE AUTO 0.06 K/mm3 (0.00-0.23); BASOPHILS PERCENT AUTO 1 % (0-2); EOSINOPHILS ABSOLUTE AUTO 0.17 K/mm3 (0.00-0.68); EOSINOPHILS PERCENT AUTO 2 % (0-6); Hematocrit 34.5 % (33.0-51.0); Hemoglobin 10.3 g/dL (11.5-16.0); IMMATURE GRAN ABSOLUTE AUTO 0.02 K/mm3 (0.00-0.10); IMMATURE GRAN PERCENT AUTO 0 % (0-1); LYMPHOCYTES PERCENT AUTO 20 % (21-46); MONOCYTES ABSOLUTE AUTO 0.57 K/mm3 (0.16-1.47); MONOCYTES PERCENT AUTO 8 % (4-13); Mean Corpuscular HGB 25.1 pg (26.0-34.0); Mean Corpuscular HGB Conc 29.9 g/dL (31.5-36.5); Mean Corpuscular Volume 84 fL (80-100); Mean Platelet Volume 9.5 fL (9.1-12.4); NEUTROPHILS ABSOLUTE AUTO 5.27 K/mm3 (1.96-9.15); NEUTROPHILS PERCENT AUTO 69 % (41-73); Platelet Count 517 K/mm3 (150-400); RDW Coefficient Variation 14.6 % (11.7-14.2); RDW Standard Deviation 44.5 fL (35.1-46.3); White Blood Cell Count 7.59 K/mm3 (4.00-11.30)
[2020-07-15 15:10] LABS: Alanine Aminotransfer (ALT/SGP 26 U/L (12-78); Albumin, Blood 3.2 g/dL (3.4-5.0); Albumin/Globulin Ratio 0.8 (0.8-1.8); Alk Phos 109 U/L (50-136); Anion Gap 4 mmol/L (6-16); Aspartate Aminotrans (AST/SGOT 15 U/L (12-37); Bilirubin, Total 0.2 mg/dL (0.1-1.0); Blood Urea Nitrogen 16 mg/dL (8-24); Bun/Creatinine Ratio 40.6 (12.0-20.0); CHOL/HDL RATIO 2.8; CO2, Blood 28 mmol/L (21-32); Calcium, Blood 8.5 mg/dL (8.5-10.1); Chloride, Blood 105 mmol/L (98-108); Cholesterol 131 mg/dL (50-200); Creatinine, Blood 0.39 mg/dL (0.40-1.00); Glomerular Filtration Rate >60 (60-); Glucose, Blood 139 mg/dL (70-99); HDL Cholesterol 47 mg/dL (>39); LDL/HDL RATIO 1.4; Low Density Lipoprotein Chol 67 mg/dL (0-110); Potassium, Blood 3.3 mmol/L (3.5-5.5); Sodium, Blood 137 mmol/L (136-145); Total Protein, Blood 7.2 g/dL (6.4-8.2); Triglycerides 84 mg/dL (30-160); Very Low Density Lipoprot Chol 17 mg/dL (6-32)
== END | disposition home or self-care (01) ==
LOC: LAB 13:35 → LAB SHORT 13:35
PROVIDERS: Physician Assistant
DX: N39.3 Stress incontinence (female) (male) (principal); I10 Essential (primary) hypertension; E78.5 Hyperlipidemia, unspecified; D64.9 Anemia, unspecified; E11.9 Type 2 diabetes mellitus without complications; R60.0 Localized edema
CPT/HCPCS: 80053; 80061; 83036; 85025

== ENCOUNTER 2021-09-25 17:47 | Observation (INO) | payer OTHER ==
[~2021-09-25] VITALS: Ht 167.6 cm; Wt 72.6 kg
[~2021-09-25 17:47] MED LIST changes: +ATOR80 PO; +BANOPHEN50 M1 PO; +CLOP75 PO; +FERSU300 PO; +LORA10ER PO; +MONT10T PO; +OMEP20ER PO; +Oxybutynin Chlor5 M1 PO; +XARELTO2.5 MG PO; +Zanaflex2 M1 PO
[2021-09-25 19:05] LABS: BASOPHILS ABSOLUTE AUTO 0.07 K/mm3 (0.00-0.23); BASOPHILS PERCENT AUTO 1 % (0-2); EOSINOPHILS ABSOLUTE AUTO 0.28 K/mm3 (0.00-0.68); EOSINOPHILS PERCENT AUTO 2 % (0-6); Hematocrit 38.6 % (33.0-51.0); Hemoglobin 12.2 g/dL (11.5-16.0); IMMATURE GRAN ABSOLUTE AUTO 0.06 K/mm3 (0.00-0.10); IMMATURE GRAN PERCENT AUTO 1 % (0-1); LYMPHOCYTES ABSOLUTE AUTO 1.89 K/mm3 (0.84-5.20); LYMPHOCYTES PERCENT AUTO 15 % (21-46); MONOCYTES ABSOLUTE AUTO 1.28 K/mm3 (0.16-1.47); MONOCYTES PERCENT AUTO 10 % (4-13); Mean Corpuscular HGB 26.1 pg (26.0-34.0); Mean Corpuscular HGB Conc 31.6 g/dL (31.5-36.5); Mean Corpuscular Volume 83 fL (80-100); Mean Platelet Volume 9.5 fL (9.1-12.4); NEUTROPHILS ABSOLUTE AUTO 9.17 K/mm3 (1.96-9.15); NEUTROPHILS PERCENT AUTO 72 % (41-73); Platelet Count 520 K/mm3 (150-400); RDW Coefficient Variation 16.4 % (11.7-14.2); RDW Standard Deviation 49.3 fL (35.1-46.3); Red Blood Cell Count 4.67 M/mm3 (3.80-5.20); White Blood Cell Count 12.75 K/mm3 (4.00-11.30)
[2021-09-25 19:28] LABS: Alanine Aminotransfer (ALT/SGP 25 U/L (12-78); Albumin, Blood 2.9 g/dL (3.4-5.0); Albumin/Globulin Ratio 0.7 (0.8-1.8); Alk Phos 93 U/L (50-136); Anion Gap 8 mmol/L (6-16); Aspartate Aminotrans (AST/SGOT 16 U/L (12-37); Bilirubin, Total 0.3 mg/dL (0.1-1.0); Blood Urea Nitrogen 20 mg/dL (8-24); Bun/Creatinine Ratio 42.6 (12.0-20.0); CO2, Blood 24 mmol/L (21-32); Calcium, Blood 9.1 mg/dL (8.5-10.1); Chloride, Blood 109 mmol/L (98-108); Creatinine, Blood 0.47 mg/dL (0.40-1.00); Globulin, Blood 4.3 g/dL (2.2-4.0); Glomerular Filtration Rate >60 (60-); Glucose, Blood 115 mg/dL (70-99); Potassium, Blood 3.6 mmol/L (3.5-5.5); Sodium, Blood 141 mmol/L (136-145); Total Protein, Blood 7.2 g/dL (6.4-8.2)
[2021-09-25 20:01] LABS: Source, Urine Foley catheter
[2021-09-25 20:14] LABS: Appearance, Urine Cloudy (Clear); Bilirubin, Urine Neg (Neg); Blood, Urine 5+ (Neg); Color, Urine Yellow (P-Yellow); Glucose Qualitative, Urine Neg (Neg); Ketones, Urine 1+ (Neg); Leukocyte Esterase, Urine 3+ (Neg); Nitrite, Urine Pos (Neg); Protein, Urine 3+ (Neg); Urobilinogen, Urine 1+ (Normal)
[2021-09-25 20:26] LABS: Bacteria Mod /hpf; Hyaline Casts 0-2 /lpf (0-2); RBC Cast 0-2 /lpf (0); Red Blood Cells, Urine TNTC /hpf (0-2); Squamous Epithelial Cells Mod /hpf (Few); Transitional Epithelial Cells Rare /hpf (0-Rare); WBC Cast 0-2 /lpf (0); White Blood Cells, Urine TNTC /hpf (0-5)
[2021-09-26] MEDS ORDERED: LISINOPRIL2.5 MG PO (00:34)
[2021-09-26] MEDS ORDERED: HYDROCODONE-AC1 EA17 PO (00:35)
--- NOTE | 2021-09-26 00:51 | NUR ---
ADMIT NOTE HANDOFF RECEIVED FROM [facility] KINDERGARTEN TEACHERDANDY PENALOZA. PT ARRIVED TO FLOOR VIA GURNEY. TELEMETRY IN PLACE. WOUNDS PHOTOGRAPHED. PERERA IN PLACE, CHANGED IN ER. NS IV FLUIDS TO BE GIVEN. PT ORIENTED TO UNIT. CALL BUTTON WITHIN REACH. PERSONAL POSSESSIONS WITH PT. BED ALARM IS ON.
--- NOTE | 2021-09-26 04:13 | NUR ---
SHIFT SUMMARY ADMITTED FOR INABILITY TO CARE FOR SELF/UTI. DNR CODE - LIMITED. PLAN IS FOR IV ANTIB RX, THEN REHAB PLACEMENT WHEN READY FOR DC. WHEELCHAIR BOUND AT BASELINE. HX OF FALLS. RIGHT BUTTOCK PRESSURE ULCER. LEFT 2ND TOE IS BLACK WITH OPEN ABRASION. MEPILEX ON BUTTOCK, BANDAGE ON INJURED TOE. PICTURES IN CHART. TELEMETRY IS IN PLACE: NSR @ [address] APS IS INVESTIGATING HOME SITUATION. SHE IS A&O X4. ADA DIET.
--- NOTE | 2021-09-26 04:50 | NUR ---
TELEMETRY CALLED INFORMED ME THAT SHE SEES THE PT HAS INTERMITTENT RUNS OF AFIB, NSR OTHERWISE.
[2021-09-26 05:27] LABS: BASOPHILS ABSOLUTE AUTO 0.06 K/mm3 (0.00-0.23); BASOPHILS PERCENT AUTO 1 % (0-2); EOSINOPHILS ABSOLUTE AUTO 0.33 K/mm3 (0.00-0.68); EOSINOPHILS PERCENT AUTO 3 % (0-6); Hematocrit 35.6 % (33.0-51.0); Hemoglobin 10.8 g/dL (11.5-16.0); IMMATURE GRAN ABSOLUTE AUTO 0.07 K/mm3 (0.00-0.10); IMMATURE GRAN PERCENT AUTO 1 % (0-1); LYMPHOCYTES PERCENT AUTO 17 % (21-46); MONOCYTES ABSOLUTE AUTO 1.46 K/mm3 (0.16-1.47); MONOCYTES PERCENT AUTO 12 % (4-13); Mean Corpuscular HGB 25.6 pg (26.0-34.0); Mean Corpuscular HGB Conc 30.3 g/dL (31.5-36.5); Mean Corpuscular Volume 84 fL (80-100); Mean Platelet Volume 9.7 fL (9.1-12.4); NEUTROPHILS ABSOLUTE AUTO 7.86 K/mm3 (1.96-9.15); NEUTROPHILS PERCENT AUTO 67 % (41-73); Platelet Count 436 K/mm3 (150-400); RDW Coefficient Variation 16.2 % (11.7-14.2); RDW Standard Deviation 50.5 fL (35.1-46.3); Red Blood Cell Count 4.22 M/mm3 (3.80-5.20); White Blood Cell Count 11.78 K/mm3 (4.00-11.30)
[2021-09-26 06:04] LABS: Alanine Aminotransfer (ALT/SGP 25 U/L (12-78); Albumin, Blood 2.6 g/dL (3.4-5.0); Albumin/Globulin Ratio 0.6 (0.8-1.8); Alk Phos 86 U/L (50-136); Anion Gap 7 mmol/L (6-16); Aspartate Aminotrans (AST/SGOT 16 U/L (12-37); Bilirubin, Total 0.2 mg/dL (0.1-1.0); Blood Urea Nitrogen 18 mg/dL (8-24); CO2, Blood 25 mmol/L (21-32); Calcium, Blood 8.4 mg/dL (8.5-10.1); Chloride, Blood 109 mmol/L (98-108); Creatinine, Blood 0.46 mg/dL (0.40-1.00); Glomerular Filtration Rate >60 (60-); Glucose, Blood 127 mg/dL (70-99); Potassium, Blood 3.2 mmol/L (3.5-5.5); Sodium, Blood 141 mmol/L (136-145); Total Protein, Blood 6.6 g/dL (6.4-8.2)
--- NOTE | 2021-09-26 17:59 | NUR ---
SHIFT SUMMARY PATIENT IS ALERT AND ORIENTED X3. HERE FOR FALLS AND UTI. PERERA PATENT AND DRAINING TO GRAVITY. PATIENT ON 2L O2 NC. PATIENT IS A TURN Q2, HAS PT AND OT ORDERS, ATTEMPTED TO SEE PATIENT MULTIPLE TIMES, PATIENT REFUSED. PATIENT TAKES MEDS WHOLE WITH WATER.BLOOD SUGAR @ 1630 IS 168 ON LOW SLIDING SCALE, PATIENT REFUSES INSULIN. PATIENT IS SITTING UP FEEDING HERSELF DINNER. VSS WILL CONTINUE TO MONITOR.
--- NOTE | 2021-09-27 05:24 | NUR ---
SHIFT SUMMARY NO ACUTE CHANGES THIS EVENING. PT SLEPT WELL MUCH OF THE NIGHT. REMOVES O2 AT TIMES AND DESATS INTO THE HIGH 80'S ON RA. PERERA CATHETER PATENT AND DRAINING. TELEMETRY SR IN THE 70'S, OCCASSIONALLY CONVERTING INTO AFIB FOR LESS THAN A MINUTE AND THEN CONVERTING BACK TO SR. PT HAD A 2.[address]. [address]. SHINE NOTIFIED. PT HAD A LARGE BOWEL MOVEMENT THIS EVENING. INCONTINENT. MEPILEX CHANGED TO R BUTTOCKS, OLD PRESSURE SORE PRESENT BUT ALMOST HEALED OVER. VITAL SIGNS STABLE.
--- NOTE | 2021-09-27 17:09 | NUR ---
SHIFT SUMMARY PATIENT DENIES PAIN, NAUSEA, AND SHORTNESS OF BREATH. PATIENT REFUSED TO GET OUT OF BED TODAY, STATES SHE IS TOO WEAK. PATIENT DID AGREE TO SIT ON SIDE OF BED, SHE ATE LUNCH AND DINNER ON EDGE OF BED. PATIENT DID WORK WITH OT TODAY. PATIENT REFUSED PT X2 TODAY. PATIENT IS ON 2L VIA N/C. MAINTAINING SATS ABVOVE 92%. PERERA IS PATENT AND DRAINING TO GRAVITY. NEW IV PLACED. PATIENT IS EATING AND DRINKING WELL. PATIENT IS PLEASANT AND COOPERATIVE WITH CARE.
--- NOTE | 2021-09-28 04:16 | NUR ---
SHIFT SUMMARY: NO SIGNIFICANT EVENTS ON NOC. PATIENT SLEPT WELL THROUGH THE NIGHT. CLEANSED WOUND TO LEFT TOE AND COVERED WITH NON ADHERENT DRESSING AND WRAPPED IN KERLIX. PERERA IN PLACE DRAINING ADEQUATE AMOUNT OF URINE. NO COMPLAINTS OF PAIN. COMPLIANT WITH MEDICATIONS, ASSESSMENT, AND PLAN OF CARE. WCTM.
--- NOTE | 2021-09-28 09:00 | NUR ---
pt laying in bed awake watching tv, a/ox3, plesant and cooperative with care, follows commands well, in good spirits this am, lungs are course rhonchi t/o, on 1 - 2 liters 02 via n/c, resp even and unlabored with a productive harsh wet cough, hrr, tele in place running sr per monitor, see strip, no edema noted, ppp faint, cap refill <3sec, vs stable, afebrile, iv site to lac, s.l. site is clear and patent, btx4, abd flat soft nontender, voids via jordan cath draining clear yellow urine, skin has wound to left toe with dressing in place and to sacrum with mepilex in place, very weak, tennis racket repairer =, reinaldo, call light in reach.
--- NOTE | 2021-09-28 18:14 | NUR ---
pt had an uneventful day, no blood sugar coverage, has been in good spirits all day. no acute changes this shift. call light in reach.
--- NOTE | 2021-09-29 06:35 | NUR ---
SHIFT SUMMARY: NO SIGNIFICANT EVENTS ON NOC. REMAINS ON 2L O2 TO MAINTAIN SAT > 92%. PERERA DRAINGING ADEQAUTE AMOUNTS OF CLEAR YELLOW URINE. CAN BE CANTANKEROUS WITH STAFF. AVINASH.
--- NOTE | 2021-09-29 09:00 | NUR ---
pt laying in bed awake a/ox3, pleasnant and cooperative with care, follows commands well, denies pain, states her toe is oozing, will place a dressing, lungs are course rhonci t/o, resp even and unlabored, no cough noted, on 2liters 02 via n/c, hrr, tele in place running sr per monitor, see strip, no edema noted, ppp+1, cap refill <3sec, vs stable, afebrile, iv site is clear and patent, btx4, abd flat soft nontender, voids via jordan cath, clear yellow urine, skin has a wound to the second toe of the left foot, and dressing to sacrum, nick, weak, PT/OT working with her, reinaldo, call light in reach.
--- NOTE | 2021-09-29 18:12 | NUR ---
pt doing well, states she feels good, sitting on the side of the bed eating dinner, worked well with PT today, no further changes this shift. call light in reach.
--- NOTE | 2021-09-30 05:02 | NUR ---
SHIFT SUMMARY: PT IS ALERT AND ORIENTED. PT IS IRRITABLE BUT COOPERATIVE WITH CARE. PT REQUIRES 1 ASSIST FOR TRANSFERS. PT CALLS APPROPRIATELY. PT DENIES PAIN, NAUSEA, VOMITING, AND SOB. NO ACUTE CHANGES OR COMPLICATIONS THIS SHIFT. BED IN LOW POSITION, CALL LIGHT WITHIN REACH. WILL REPORT TO DAY NURSE AND CONTINUE TO MONITOR.
--- NOTE | 2021-09-30 17:19 | NUR ---
SHIFT SUMMARY: PATIENT IS ALERT AND ORIENTED. SHE HAS BEEN PLEASANT AND COOPERATIVE WITH CARE THROUGHOUT MY SHIFT. PT REQUIRES 1 PERSON ASSIST FOR TRANSFERS. SHE CALLS APPROPRIATELY. PT'S WOUNDS WERE CLEANED AND REDRESSED. PATIENT WAS INITIALLY ON 1.5 L O2 NC, BUT HAS BEEN ABLE TO BE ON RA WITH GOOD O2 SATURATION. SHE HAS THE NC BESIDE HER TO USE NEEDED. PT HAS BEEN COUGHING, SO SHE WAS MEDICATED WITH GUAIFENESIN. PT'S BLOOD SUGARS HAVE BEEN GOOD, SO INSULIN HAS NOT BEEN NEEDED. BED IN LOW POSITION. CALL LIGHT IN REACH. WILL REPORT TO NIGHT NURSE AND CONTINUE TO MONITOR.
--- NOTE | 2021-10-01 03:28 | NUR ---
CIRCULATION ASSISTANT SUMMARY AWAKE AT INTERVALS. VOICED PAIN OF LEFT TOE WHICH SHE VOICED WAS TRAUMATIZED WHEN SHE FELL AND IT WAS COUGHT UNDER THE WHEELCHAIR. NOTE BANDAID ON IT, SHE SAID IT WAS SEEN IN THE ED. WILL ASK AM RN TO HAVE MD ASSESS IT IN THE AM. TYLENOL GIVEN, MED EFFECTIVE. HAS BEEN RESTING QUIETLY WITH FEW INTERRUPTIONS SINCE. CALL LIGHT IN DORIS. SOME VERBAL AGRESSION WHEN INTERACTING WITH STAFF.
--- NOTE | 2021-10-01 18:01 | NUR ---
SHIFT SUMMARY: PT IS ALERT AND ORIENTED. SHE HAS BEEN PLEASANT AND COOPERATIVE WITH CARE, BUT IS OCCASIONALLY IRRITABLE. PT CALLS APPROPRIATELY. THE ULCERATION ON HER LEFT SECOND TOE WAS CLEANED, BACITRACIN WAS APPLIED, AND THE TOE WAS REDRESSED. PT HAS NOT NEEDED O2 THROUGHOUT MY SHIFT. SHE HAS BEEN COUGHING, SO SHE WAS MEDICATED TWICE WITH GUAIFENESIN. PT'S BLOOD SUGARS HAVE BEEN BELOW THE PARAMETER FOR INSULIN, SO IT WAS NOT GIVEN. BED IS IN LOW POSITION. CALL LIGHT IN REACH. WILL REPORT TO NIGHT NURSE AND CONTINUE TO MONITOR.
--- NOTE | 2021-10-02 04:37 | NUR ---
SUPERVISOR LANDSCAPE SUMMARY PT IS DNR. HX OF FALLS, DMT2, AND UTI. A/OX4. PT ABLE TO MAKE NEEDS KNOWN. PT AGITATED IN THE EVENING. VERBALLY AGGRESSIVE W/STAFF DURING ASSESSMENT AND INTERACTIONS. PT C/O OF PAIN IN LEFT TOE AND BACK. REFUSED TYLENOL. PT IS WEAK. DIFFICULTY PUSHING SELF UP IN BED. SOB W/EXERTION. ON TELE; FLUCTUATIONS IN RATE, NORMAL SINUS 61-91, W/PAUSES. RESTED QUIETLY THROUGH THE NIGHT. PERERA IN PLACE. 2L O2 W/NC WEARING INTERMITTENT. CALL LIGHT IN REACH.
--- NOTE | 2021-10-02 18:07 | NUR ---
SHIFT SUMMARY: PT IS A/O X4. SHE IS OCCASIONALLY IRRITABLE, BUT IS COOPERATIVE WITH CARE. PT CALLS APPROPRIATELY. THE ULCERATION ON HER LEFT SECOND TOE WAS CLEANED, BACITRACING WAS APPLIED, AND THE TOE WAS REDRESSED WITH A NONADHERENT BANDAGE AND GAUZE. MEPILEX DRESSINGS ALSO CHANGED ON PT'S BUTTOCKS. PT USES O2 VIA NC INTERMITTENTLY. SHE HAS A PRODUCTIVE COUGH, ESPECIALLY WITH MOVEMENT, SO GUAIFENESIN WAS ADMINISTERED PER EMAR. TELE WAS DC'D TODAY. PT'S BLOOD SUGARS HAVE BEEN BELOW THE PARAMETER FOR EMAR. APPROVED ORDER TO CHANGE CBG CHECKS TO ONCE IN THE MORNING BEFORE BREAKFAST. INSULIN WAS DC'D WELL. PT HAD A BOWEL MOVEMENT, SO HER BRIEF WAS CHANGED AND SHE WAS CLEANED UP. BED IS IN LOW POSITION. CALL LIGHT IN REACH. WILL REPORT TO NIGHT NURSE AND CONTINUE TO MONITOR.
--- NOTE | 2021-10-03 05:12 | NUR ---
MANAGER NUCLEAR SUMMARY PT A/OX X4. AGITATED W/STAFF AND REFUSED TO ALLOW ASSESSMENT OF LEFT TOE DRESSING AND IV FLUSH. PT ON 2L OXYGEN NC. SOB W/EXERTION. PT ABLE TO MAKE NEEDS KNOWN AND USE CALL LIGHT. PERERA IN PLACE. PT REPORTS SOME DISCOMFORT FROM HER TOE AND SACRAL WOUNDS. CALL LIGHT IN REACH. BED IN LOW POSITION.
[2021-10-03] MEDS ORDERED: ACET325 PO (15:32)
--- NOTE | 2021-10-03 15:33 | NUR ---
START OF SHIFT RECEIVED REPORT AT START OF SHIFT. ASSUMED CARE OF PT. PT A&OX4. NO COMPLAINTS OF PAIN. C/O NOT BEING ABLE TO SLEEP D/T TOO MANY INTERUPTIONS WAKING HER UP, WANTS TO BE LEFT ALONE. SUSPECT PT MAY BE DC'D TODAY TO EITHER SNF OR HOME WITH HH. PT HAS REFUSED TO WORK WITH PT, OT & RT TODAY. HAS ALSO REFUSED PERSONAL CARE. CASE MANAGEMENT IS WORKING ON DC PLAN.
--- NOTE | 2021-10-03 16:55 | NUR ---
Received referral from nurse personal carer (Morelia Landry) on 10/03/2021. Patient is to discharge 10/03/2021 with orders for home health and elected [facility]. Met with patient to further discuss the above. Patient is agreeable to the above. Discussed homebound status definition with patient. Patient verbalized understanding. Discussed what home health is vs what it is not (in home caregivers/housekeeping). Patient verbalized understanding. Discussed the next steps in the process of an initial assessment to determine frequency of visits. Again patient verbalized understanding. Offered a chance for patient to ask questions regarding the above of which there were none. Gathered all supporting documentation for referral (face sheet, face to face, med list, H&P, discharge summary, and most recent PT assessment) and sent to [facility] for review. No further interventions required. Christy Pennington Referral Liaison
--- NOTE | 2021-10-03 19:07 | NUR ---
SHIFT SUMMARY PT A&OX4. PT REFUSED TO WORK WITH PT,OT,RT TODAY. DC IS ARRANGED FOR TOMORROW. DENIED PAIN THROUGHOUT SHIFT.
--- NOTE | 2021-10-04 03:50 | NUR ---
HEEL COVERER SUMMARY HAS BEEN RESTING QUIETLY WITH OCCASIONAL INTERRUPTIONS SINCE HS. TOLERATED HS MES WELL WITH WATER. VOICED ANNOYANCE WITH STAFF WHEN THEY ENCOURAGED HER TO COMPLY WITH ASSESSMENTS. CALL LI IN REACH. REFUSED TO ALLOW STAFF TO ASSESS HER TOE/DRESSING. RESTING QUIETLY AT THIS TIME.
--- NOTE | 2021-10-04 18:03 | NUR ---
DC HOME PT HOME WITH [facility] VIA W/C AND TRANSPORT. SENT WITH HOME O2 VIA N/C. IV'S DC'D. ALL DC INSTRUCTIONS GIVEN TO PT. ALL BELONGINGS SENT WITH PT. ALL CONCERNS & QUESTIONS ANSWERED.
== END 2021-10-04 13:32 | disposition home health service (06) ==
LOC: ER 17:47 → MEDS 17:48
PROVIDERS: Physician Assistant; Student in an Organized Health Care Education/Training Program; ADMIT Internal Medicine
DX: R53.1 Weakness (principal); T83.511A Infection and inflammatory reaction due to indwelling urethral catheter, initial encounter; N39.0 Urinary tract infection, site not specified; Y73.8 Miscellaneous gastroenterology and urology devices associated with adverse incidents, not elsewhere classified; L89.153 Pressure ulcer of sacral region, stage 3; L97.509 Non-pressure chronic ulcer of other part of unspecified foot with unspecified severity; M19.90 Unspecified osteoarthritis, unspecified site; F31.9 Bipolar disorder, unspecified; I10 Essential (primary) hypertension; E11.51 Type 2 diabetes mellitus with diabetic peripheral angiopathy without gangrene; F17.200 Nicotine dependence, unspecified, uncomplicated; U07.1 COVID-19; R29.6 Repeated falls; Z66 Do not resuscitate; Z79.84 Long term (current) use of oral hypoglycemic drugs
CPT/HCPCS: 36415; 51702; 71045; 73620; 80053; 81001; 82947; 83605; 84484; 85025; 87077; 87086; 87186; 94640; 94664; 94760; 94761; 94762; 96374; 97110; 97162; 97166; 97530; 99285-25; A9270; J0696; J7030

== ENCOUNTER 2021-10-30 17:41 | Inpatient (IN) | payer OTHER ==
[~2021-10-30] VITALS: Ht 170.2 cm; Wt 78.7 kg
[~2021-10-30 17:41] MED LIST changes: +HYDROCODONE-AC1 EA17 PO; +LISINOPRIL2.5 MG PO
[2021-10-30 18:21] LABS: BASOPHILS PERCENT AUTO 0 % (0-2); EOSINOPHILS PERCENT AUTO 0 % (0-6); Hematocrit 28.6 % (33.0-51.0); Hemoglobin 9.4 g/dL (11.5-16.0); IMMATURE GRAN ABSOLUTE AUTO 0.47 K/mm3 (0.00-0.10); IMMATURE GRAN PERCENT AUTO 2 % (0-1); LYMPHOCYTES ABSOLUTE AUTO 1.15 K/mm3 (0.84-5.20); LYMPHOCYTES PERCENT AUTO 5 % (21-46); MONOCYTES PERCENT AUTO 3 % (4-13); Mean Corpuscular HGB 25.3 pg (26.0-34.0); Mean Corpuscular HGB Conc 32.9 g/dL (31.5-36.5); Mean Corpuscular Volume 77 fL (80-100); Mean Platelet Volume 9.6 fL (9.1-12.4); NEUTROPHILS ABSOLUTE AUTO 21.93 K/mm3 (1.96-9.15); NEUTROPHILS PERCENT AUTO 90 % (41-73); NRBC ABSOLUTE 0.05 K/mm3 (0.00-0.02); NRBC Auto 0.2 /100 WBC (0.0-0.2); Platelet Count 502 K/mm3 (150-400); RDW Coefficient Variation 18.1 % (11.7-14.2); RDW Standard Deviation 50.7 fL (35.1-46.3); Red Blood Cell Count 3.72 M/mm3 (3.80-5.20); White Blood Cell Count 24.45 K/mm3 (4.00-11.30)
[2021-10-30 19:09] LABS: Albumin, Blood 2.3 g/dL (3.4-5.0); Albumin/Globulin Ratio 0.5 (0.8-1.8); Bilirubin, Total 0.4 mg/dL (0.1-1.0); Calcium, Blood 9.9 mg/dL (8.5-10.1); Creatinine, Blood 0.86 mg/dL (0.40-1.00); Globulin, Blood 4.5 g/dL (2.2-4.0); Potassium, Blood 2.4 mmol/L (3.5-5.5); Total Protein, Blood 6.8 g/dL (6.4-8.2)
[2021-10-30 20:23] LABS: International Normalized Ratio 1.05
[2021-10-30 20:47] LABS: Source, Urine Foley catheter
[2021-10-30 20:51] LABS: Bilirubin, Urine Neg (Neg); Blood, Urine 5+ (Neg); Glucose Qualitative, Urine Neg (Neg); Ketones, Urine Neg (Neg); Leukocyte Esterase, Urine 2+ (Neg); Nitrite, Urine Neg (Neg); Protein, Urine 4+ (Neg); Urobilinogen, Urine NORM (Normal)
[2021-10-30 21:02] LABS: Appearance, Urine Bloody (Clear); Color, Urine Red (P-Yellow)
[2021-10-30 21:04] LABS: White Blood Cells, Urine TNTC /hpf (0-5)
[2021-10-30 21:05] LABS: Bacteria Many /hpf; Red Blood Cells, Urine TNTC /hpf (0-2); Squamous Epithelial Cells Many /hpf (Few)
[2021-10-30 21:57] LABS: Influenza A, PCR NEGATIVE (NEGATIVE); Influenza B, PCR NEGATIVE (NEGATIVE); Resp Syncytial Virus, PCR NEGATIVE (NEGATIVE); SARS-Cov-2 (COVID-19) PCR, MMC NEGATIVE (NEGATIVE)
[2021-10-31 03:59] LABS: Hematocrit 27.6 % (33.0-51.0); Hemoglobin 8.7 g/dL (11.5-16.0); Mean Corpuscular HGB 25.1 pg (26.0-34.0); Mean Corpuscular HGB Conc 31.5 g/dL (31.5-36.5); Mean Corpuscular Volume 80 fL (80-100); Mean Platelet Volume 9.3 fL (9.1-12.4); NRBC ABSOLUTE 0.05 K/mm3 (0.00-0.02); NRBC Auto 0.2 /100 WBC (0.0-0.2); Platelet Count 512 K/mm3 (150-400); RDW Coefficient Variation 18.6 % (11.7-14.2); RDW Standard Deviation 53.9 fL (35.1-46.3); Red Blood Cell Count 3.47 M/mm3 (3.80-5.20); White Blood Cell Count 30.32 K/mm3 (4.00-11.30)
[2021-10-31 04:01] LABS: PCO2 Arterial 68.1 mmHg (35-45); PO2 Arterial 68.9 mmHg (80-100)
[2021-10-31 04:02] LABS: pH Blood Arterial 7.08 (7.35-7.45)
[2021-10-31 04:18] LABS: Albumin, Blood 2.1 g/dL (3.4-5.0); Albumin/Globulin Ratio 0.5 (0.8-1.8); Bilirubin, Total 0.2 mg/dL (0.1-1.0); Bun/Creatinine Ratio 77.3 (12.0-20.0); Creatinine, Blood 0.75 mg/dL (0.40-1.00); Globulin, Blood 3.9 g/dL (2.2-4.0); Potassium, Blood 2.8 mmol/L (3.5-5.5)
[2021-10-31 04:39] LABS: BAND PERCENT MAN 8 % (0-8); BASOPHILS PERCENT MAN 0 % (0-2); EOSINOPHILS PERCENT MAN 1 % (0-6); LYMPHOCYTES ABSOLUTE MAN 2.12 K/mm3 (0.84-5.20); LYMPHOCYTES PERCENT MAN 7 % (21-46); MONOCYTES ABSOLUTE MAN 1.21 K/mm3 (0.16-1.47); MONOCYTES PERCENT MAN 4 % (4-13); NEUTROPHILS ABSOLUTE MAN 26.68 K/mm3 (1.96-9.15); SEG NEUTROPHILS PERCENT MAN 80 % (41-73); TOTAL CELLS COUNTED 100
--- NOTE | 2021-10-31 07:25 | NUR ---
SHIFT SUMMERY: PT ARRIVED FROM ED AT 2200 AND WAS MOVED INTO ICU SYSTEM WITHOUT INCIDENT. PT HAD PIV'S X2 ON ARRIVAL AND WAS HYPOTENSIVE SO MD WAS NOTIFIED AND CVC WAS PLACED AT 2330. LEVOPHED STARTED AT 4 MCG/MINUTE. PT INITIALLY ORIENTED TO SELF PLACE AND MONTH BUT WAS OTHERWISE VERY CONFUSED AND RESTLESS TO THE EXTENT THAT RESTRAINTS WERE APPLIED TO PROTECT THE CVC. PT HAS MANY WOUNDS WHICH APPEAR TO BE PRESSURE RELATED AND FROM POOR HYGENE. LARGE AREAS OF ESCHAR AND OPEN SORES NOTED TO PT'S COCCYX AND BUTTOCKS, WHICH APPEAR TO BE DEEP TISSUE INJURY BUT ARE NOT STAGEABLE AT THIS TIME. WOUND CARE CONSULTATION ENTERED. PT ALSO HAS WOUNDS UNDER BILATERAL BREASTS AND TO MULTIPLE TOES ON EACH FOOT, WITH THE LEFT SECOND TOE BEING MOST SIGNIFICANT OF THE WOUNDS TO HER FEET. THE LEFT FOOT IS VERY SWOLLEN AND VERY RED. AT AROUND 0400 PT WAS NOTED TO HAVE A VERY PROFOUND CHANGE IN BOTH HER MENTATION AND HER RESPIRATORY PATTERN. PRIOR, PT HAD BEEN CONSISTANTLY RESTLESS AND AT TIMES MOANING, BUT THIS CHANGED TO WHERE THE PT ONLY OPENS EYES TO VOICE BUT DOES NOT LOCALIZE VOICES OR INTERACT AND ONLY WITHDRAWS TO PAIN. PT' RESPIRATIONS BECAME GASPING IN NATURE AND A NRB MASK WAS REQUIRED TO KEEP SPO2 90%. DR. RYDER CAME TO BEDSIDE, ABG AND LASIX WERE ORDERED. BIPAP WAS STRATED AFTER THE ABG RESULTS WERE OBTAINED. PT'S SPO2 IMPROVED AFTER BIPAP WAS INITIATED. MD MADE AWARE OF PERSISTANTLY LOW POTASSIUM AND ORDER RECIEVED FOR REPLACEMENT, WELL FOR BICARB.
--- NOTE | 2021-10-31 11:33 | NUR ---
Spoke with Primary RN Mary Lou and Dr Hyde. Reviewed plan of care and discussed prognosis. Pt's daughter is considering comfort care but has questions and may benefit from Palliative Care discussing further. Called and spoke with Pt's daughter Ayah and son in law on speaker phone. Provided update and offered therapeutic listening. Educated on comfort care philosophy and answered questions. Daughter's spouse is in the and daughter and son in law live in [facility]. They report plan to call back this afternoon with decision. Family is going to discuss further if they should try and fly out to see Pt before placing her on comfort care. Son in law requests that staff assist with contacting [place] to assit with obtaining leave from [facility]. Instructed this request will be relayed to daniel. Family express appreciation and report no other concerns at this time. Spoke with Daniel Davis and relayed request. Palliative Care will remain available.
--- NOTE | 2021-10-31 12:28 | NUR ---
REASSESSMENT PT HAS CONTINUED TO REQUIRE BIPAP THROUGHOUT THE MORNING. SHE TOELRATED A 5 MINUTE BREAK FOR ORAL CARE USING 4L/NC AT THE START OF SHIFT, BUT FOR THE NOON ORAL CARE, PT STARTED TO DESATURATE AND HER HR DROPPED TO THE 40S FROM THE 70S. HR JUMPED BACK UP TO THE 70S SOON BIPAP REPLACED. AT NOON PT DID ANSWER YES WHEN HER NAME WAS SAID, BUT THAT WAS MUCH RESPONSE SHE HAD. STILL NOT FOLLOWING DIRECTIONS. BIPAP WAS TITRATED DOWN TO 40% THIS MORNING, BUT HAVING TO GO BACK UP TO 60% NOW FOR SPO2 DROPPING TO THE UPPER 80S. LOTS OF DIFFICULTY GETTING BIPAP TO FIT PROPERLY PT OPEN AND CLOSES HER MOUTH CAUSING AIR LEAKS. RT HAS TRIED MULTIPLE MASKS WITHOUT SUCCESS. PT GOES BETWEEN SR AND AFIB, REMAINS ON 4MCG OF LEVOPHED FOR BP SUPPORT. PERERA WITH GOOD OUTPUT OF LIGHT YELLOW, CLOUDY URINE. PT'S WOUND ON HER BOTTOM CLEANED WITH EACH TURN AND DRI FLOW CHANGED BENEATH IT IT IS HAVING A MODERATE AMT OF DRAINAGE. DR. DASILVA AND DR. GARSIA SHOWN PT'S WOUNDS ON ROUNDS. DR. GARSIA CALLED AND UPDATED PT'S [place] WHO IS IN [place]. PT'S [place] ALSO SPOKE WITH PALLIATIVE CARE AND PLAN IS LIKELY TO PROCEED TOWARDS COMFORT CARE, BUT CUAUHTEMOC IS TRYING TO FIGURE OUT IF SHE CAN GET HERE FIRST. CONTINUING FULL TREATMENT FOR NOW. WOUND CARE NURSE CAME BY TO SEE PT AND SAW PICTURES. DISCUSSED LIKELIHOOD OF PT GOING COMFORT SO SHE OPTED NOT TO DISTURB PT TO TURN HER PT GETS AGITATED WITH TURNS AND HAD JUST BEEN REPOSITIONED. BASED ON PICTURES SHE ADVISED SURGICAL CONSULT IF PT DOES NOT GO COMFORT CARE.
[2021-10-31 14:12] LABS: Bun/Creatinine Ratio 66.9 (12.0-20.0); Calcium, Blood 8.8 mg/dL (8.5-10.1); Creatinine, Blood 0.78 mg/dL (0.40-1.00); Potassium, Blood 2.6 mmol/L (3.5-5.5)
--- NOTE | 2021-10-31 15:49 | NUR ---
Spiritual Care Visit. Pt. is nonresponsive and there is no family present. Gave pastoral encouragement and Prayed for Pt.
--- NOTE | 2021-10-31 16:54 | NUR ---
SHIFT SUMMARY PT CONTINUED TO BE BIPAP DEPENDENT THROUGHOUT THE SHIFT. FIO2 TITRTED DOWNT 50% THIS AFTERNOON. SHE IS STILL ONLY RESPONSIVE TO PAIN, NOT ORIENTED OR FOLLOWING DIRECTIONS. SHE TOLERATED HER AFTERNOON ORAL CARE WITHOUT ANY BRADYCARDIA. STILL REQUIRING LEVOPHED FOR BP SUPPORT. WOUNDS UNCHANGED. PERERA WITH GOOD OUTPUT, CLOUDY URINE. PALLIATIVE IN CONTACT WITH PT'S CUAUHTEMOC AND DETERMINING PLAN. POTASSIUM LOW THIS AFTERNOON. DR. BREWER NOTIFIED AND POTASSIUM REPLACEMENT ORDERED
--- NOTE | 2021-10-31 19:43 | NUR ---
ASSUMED CARE RECEIVED REPORT FROM DANDY BASILIO AT 1900. PT LAYING IN BED WITH BIPAP ON, 23/01, FIO2 50%, WITH BACK UP RATE OF 20. SPO2 ON MONITOR IS 100%, ACTUAL RR IS 18. HR IS SR WITH RATE IN 70-80'S. BP IS 89/52, MAP 65, WITH LEVO AT 4MCG/MIN. PERERA PATENT, DRAINING TO GRAVITY. PT HAS EXTENSIVE WOUNDS TO BUTTOCKS AND FEET, SEE CHART FOR PICTURES. RIGHT IJ IN PLACE WITH NS AT 100ML/HR. CALL TO DR. CHUN RE: PT UNABLE TO TAKE PO MEDS AND ONLY HAS XARELTO AND PLAVIX AND PT HAS HX OF AFIB. DR. CHUN TO BE PLACING ORDER. ORDERS REVIEWED, WILL TREAT PRESCRIBED.
--- NOTE | 2021-11-01 06:22 | NUR ---
PT REMAINED ON BIPAP THROUGHOUT THE NIGHT, WHEN REMOVED FOR ORAL CARE, PT NOTED TO DESAT INTO 60'S AND SLOW TO RECOVER. HAS A DIFFICULT TIME KEEPING BIPAP MASK IN PLACE AND LEAKS, DESPITE MULTIPLE ATTEMPTS TO REFIT/REPOSITION. LUNGS REMAIN COARSE WITH FIO2 INCREASED TO 60%, AND SHE HAS NO COUGH EFFORT. SHE MOANED OUT FOR THE MAJORITY OF THE NIGHT, AND ESPECIALLY WITH REPOSITIONING. DOES NOT FOLLOW COMMANDS, BUT RESPONDS TO VOICE. HR WAS SINUS RHYTHM TO SINUS TACH, RATE RANGES 70-110'S. LEVOPHED REMAINS ON AT 5MCG/MIN TO MAINTAIN MAP >65. SHE HAD MULTIPLE SMALL SMEAR/BOWEL MOVEMENTS, DRY FLOW CHANGED WITH EACH TURN, AND NOTICABLY SOAKED FROM WOUNDS ON COCCYX/BUTTOCKS. MEDICATED WITH FENTANYL Q2, AND ZYPREXA GIVEN X1, WITH NO CHANGE TO PT AGITATION. PERERA REMAINS PATENT, 900 ML CLOUDY, YELLOW URINE WITH SEDIMENT AND CLOTS. NO LABS ORDERED THIS MORNING. WILL REPORT TO ONCOMING SHIFT WHEN AVAILABLE.
--- NOTE | 2021-11-01 09:08 | NUR ---
Pt resting in bed with her eyes closed upon arrival. Pt wearing BIPAP and in restraints. Pt left undisturbed at this time. Primary RN not available at this time. Spoke with supervisor electronics inspection Juan and discussed case. Pt remains on Levophed with some increase in medication. Pt does exhibit non verbal indicators of pain and plan is to discuss with hospitalist regarding pain management. Called and spoke with Pt's daughter Ayah and provided update. Ayah reports her spouse is currently working with the and are hopeful they can fly in tomorrow or the next day. Ayah states she does not want her mom to pass away with strangers and wants to be present for Pt at the time of her passing. Continued therapeutic listening. Ayah expresses appreciation and reports no other concerns. Palliative Care will remain available.
[2021-11-01 09:30] LABS: Albumin, Blood 1.8 g/dL (3.4-5.0); Albumin/Globulin Ratio 0.5 (0.8-1.8); Bilirubin, Total 0.2 mg/dL (0.1-1.0); Bun/Creatinine Ratio 47.8 (12.0-20.0); Calcium, Blood 8.4 mg/dL (8.5-10.1); Creatinine, Blood 0.84 mg/dL (0.40-1.00); Globulin, Blood 3.5 g/dL (2.2-4.0); Potassium, Blood 2.5 mmol/L (3.5-5.5); Total Protein, Blood 5.3 g/dL (6.4-8.2)
[2021-11-01 11:43] LABS: Vancomycin, Trough 26.4 ug/mL (5.0-10.0)
[2021-11-01 18:30] LABS: Hematocrit 23.7 % (33.0-51.0); Hemoglobin 7.3 g/dL (11.5-16.0); Mean Corpuscular HGB 24.9 pg (26.0-34.0); Mean Corpuscular HGB Conc 30.8 g/dL (31.5-36.5); Mean Corpuscular Volume 81 fL (80-100); Mean Platelet Volume 9.2 fL (9.1-12.4); NRBC ABSOLUTE 0.12 K/mm3 (0.00-0.02); NRBC Auto 0.5 /100 WBC (0.0-0.2); Platelet Count 402 K/mm3 (150-400); RDW Standard Deviation 56.4 fL (35.1-46.3); Red Blood Cell Count 2.93 M/mm3 (3.80-5.20); White Blood Cell Count 23.17 K/mm3 (4.00-11.30)
--- NOTE | 2021-11-01 18:34 | NUR ---
End of shift note: Zina has been on BIPAP 23/01 60% rate of 20 all day except for oral care. She does not pull a breath very strongly and she has a gurgle even after deep oral suctionining. Her sputumis thick and dark and gummy. She has the wounds to her bottom and toes and a rash/abrasion to her breasts and left armpit. She is getting wound cleanser to her wounds and powder to her rash areas. Calazime lotion is put on her open raw areas of her bottom. The black eschar on her bottom is part stiff/hard to touch and part soft but dry. The edges are still intact at this time. She has course lungs sounds greater on the right the left. She continues on the levophed drip now up to 9 mcg/hr to keep her MAP greater than 65. She has had a potassium replacement going all day. New labs drawn this evening, awaiting results. Her pain has been managed by fentanyl now at 50mcg, which seems to help her not be so anxious and moan out during turns and wound care. Family has been in contact with the [employer] to get travel expenses covered from [place]. No calls have come in from family to nursing staff today. Will give report to next shift to resume care.
[2021-11-01 18:35] LABS: Bun/Creatinine Ratio 43.8 (12.0-20.0); Calcium, Blood 8.6 mg/dL (8.5-10.1); Creatinine, Blood 0.8 mg/dL (0.40-1.00); Potassium, Blood 3.3 mmol/L (3.5-5.5)
[2021-11-01 18:54] LABS: BAND PERCENT MAN 16 % (0-8); BASOPHILS PERCENT MAN 0 % (0-2); EOSINOPHILS PERCENT MAN 0 % (0-6); LYMPHOCYTES % ATYPICAL MANUAL 1 % (0-0); LYMPHOCYTES ABSOLUTE MAN 1.62 K/mm3 (0.84-5.20); LYMPHOCYTES PERCENT MAN 6 % (21-46); METAMYELOCYTE ABSOLUTE MAN 0.23 K/mm3 (0.00-0.00); METAMYELOCYTE PERCENT MAN 1 % (0-0); MONOCYTES ABSOLUTE MAN 0.69 K/mm3 (0.16-1.47); MONOCYTES PERCENT MAN 3 % (4-13); MYELOCYTE ABSOLUTE MAN 0.69 K/mm3 (0.00-0.00); MYELOCYTE PERCENT MAN 3 % (0-0); NEUTROPHILS ABSOLUTE MAN 19.92 K/mm3 (1.96-9.15); SEG NEUTROPHILS PERCENT MAN 70 % (41-73); TOTAL CELLS COUNTED 100
--- NOTE | 2021-11-01 20:00 | NUR ---
Assumed Care. Opens eyes to verbal stimuli, does not follow commands. Pupils sluggish, moans in pain. Medicated with fentanyl. Lung sounds diminished in upper lobes, coarse in lowers. no noted cough, little gag on suctioning. Bipap on 60%. Sats 100%. Sinus on monitor, rate in the 80's. BP soft, levophed was at 9 had to turn up to 11, currently running low 100's. MAP in 65-70's. Few PVC's. Hypoactive BT, several BM's today per dayshift. Gallardo patent and draining cloudy yellow urine. Skin very edematous to BLE and BUE. elevated on pillows. Rash under breast and armpits are healing, dry and flacky. cleansed and powder applied. barrier cream applied to bottom, repositioned to other side. will continue to monitor.
[2021-11-01 22:33] LABS: Bun/Creatinine Ratio 37.3 (12.0-20.0); Calcium, Blood 8.5 mg/dL (8.5-10.1); Creatinine, Blood 0.89 mg/dL (0.40-1.00); Potassium, Blood 3.1 mmol/L (3.5-5.5)
--- NOTE | 2021-11-02 | NUR ---
CALL PLACED TO HOSPITALIST IN REGARDS TO ABNORMAL POTASSIUM, AWAITING RETURN CALL.
[2021-11-02 04:08] LABS: Hematocrit 23.3 % (33.0-51.0); Mean Corpuscular HGB 24.6 pg (26.0-34.0); Mean Corpuscular Volume 82 fL (80-100); Mean Platelet Volume 9.5 fL (9.1-12.4); NRBC Auto 0.4 /100 WBC (0.0-0.2); Platelet Count 347 K/mm3 (150-400); RDW Coefficient Variation 19.4 % (11.7-14.2); RDW Standard Deviation 58.1 fL (35.1-46.3); Red Blood Cell Count 2.84 M/mm3 (3.80-5.20); White Blood Cell Count 22.57 K/mm3 (4.00-11.30)
[2021-11-02 04:27] LABS: Albumin, Blood 1.7 g/dL (3.4-5.0); Albumin/Globulin Ratio 0.4 (0.8-1.8); Bilirubin, Total 0.2 mg/dL (0.1-1.0); Bun/Creatinine Ratio 37.9 (12.0-20.0); Calcium, Blood 8.4 mg/dL (8.5-10.1); Creatinine, Blood 0.82 mg/dL (0.40-1.00); Globulin, Blood 3.8 g/dL (2.2-4.0); Potassium, Blood 2.9 mmol/L (3.5-5.5); Total Protein, Blood 5.5 g/dL (6.4-8.2)
[2021-11-02 04:57] LABS: BAND PERCENT MAN 14 % (0-8); BASOPHILS PERCENT MAN 0 % (0-2); EOSINOPHILS PERCENT MAN 0 % (0-6); LYMPHOCYTES PERCENT MAN 12 % (21-46); MONOCYTES ABSOLUTE MAN 0.45 K/mm3 (0.16-1.47); MONOCYTES PERCENT MAN 2 % (4-13); NEUTROPHILS ABSOLUTE MAN 19.41 K/mm3 (1.96-9.15); SEG NEUTROPHILS PERCENT MAN 72 % (41-73); TOTAL CELLS COUNTED 100
--- NOTE | 2021-11-02 05:42 | NUR ---
SHIFT SUMMARY: Opens eyes to verbal stimuli, pupils sluggish but reactive, does not follow direction. Does not form words, just moans when she is in pain. Pain noted to BLE and bottom. Fentanyl PRN given. Lung sounds coarse mid to lower lobes, diminished in bases. Bipap settings 16/8/60%; Sats >95%. Oral care provided, suction brown thick secretions from back of throat. No cough, little gag, swallow. Normal sinus with rate in the 70-80's. BP very soft at start of shift, levophed was increased to 14 to maintain MAP >65. She tends to have better blood pressures when laying on the right. Hypoactive BT, no bm this shift. Gallardo cloudy yellow urine output 595. Excoriation and sloughing noted to bottom, severe weeping of serous sangous fluids on right side of buttocks. Black hard escar noted on the left. Weeping to left second toe as well. Barrier cream prn and open to air. Potassium level called into Dr. Bradford, will be starting kcl IV. Informed of HGB/HCT levels as well,. He said to just monitor them for now. WBC increased to 22.57. Will continue to montior.
--- NOTE | 2021-11-02 07:15 | NUR ---
Assumed care of pt at 0700 from Latoya DORMAN. Pt opens eyes spontaneously. Does not follow commands or nods head. Moans, no words provided. Pt does not make eye contact or track staff / objects as they move around the room. Wearing BiPAP with 16/8 and 60% FiO2. SpO2 100%. Loose, moist productive cough. Thick, green secretions suctioned from oropharynx with oral care.
--- NOTE | 2021-11-02 09:50 | NUR ---
FAMILY UPDATE: Spoke with daughter Ayah who reports she is able to leave tomorrow, and would arrive no earlier than 1999 tomorrow evening.
--- NOTE | 2021-11-02 10:00 | NUR ---
Fentanyl given 2x this shift due to pt crying and moaning, rigid extremities, grimace. After most recent fentanyl administration, pt oxygenation requirements increased. SpO2 74-99 with 100% FiO2 despite stable RR and tidal volumes per BiPAP. HR increased in rate variability, ranging from 60 to 90. Pt alternating between somnolence and continued crying and moaning every 2 to 5 minutes. Plan of care discussed with Dr Angel and Geneva DORMAN from pallitive care. Awaiting additional plan from pt's daughter, Marychuy.
--- NOTE | 2021-11-02 10:23 | NUR ---
Received a call from Rocio, bedside RN. She reports pt having increase in crying out, moaning. Her cardiac rhythm has become increasingly irregular. Her 02 fluxuates from 70 to 91. She is grimacing with bipap mask in place. Pain medication given with no improvement. Placed call to pt's daughter to update her on pt's current condition. She requested we not wait, and begin comfort care now. Received comfort care order from Dr. Naranjo, and Rocio is aware. Comfort care orders placed. Will offer zoom call to pt's daughter once she is more comfortable, and we are able to remove bipap mask.
--- NOTE | 2021-11-02 11:23 | NUR ---
Pt is now comfort care. BiPAP removed. Plan for pt and palliative care to meet with pt's daughter via video chat Zoom.
--- NOTE | 2021-11-02 13:35 | NUR ---
Pt transferred to room 304 accompanied by this RN and PCT Awilda. Chart, medications, and belongings transferred with patient. Daughter, Marychuy, notified of transfer and provided with medical floor phone number. At time of transfer, no signs of pain or anxiety.
--- NOTE | 2021-11-02 17:44 | NUR ---
Spiritual Care - EOL request Received call from Palliative Care. Pt. is transitioning. Palliative Care is present, and Pts. daughter is speaking to Pt. through the phone. After phone call. EOL prayer is given for Pt. Pt. passed approx 5:37. Palliative Care is confirming home with daughter and will update Medical floor nurse.
--- NOTE | 2021-11-02 17:53 | NUR ---
PT AT 0537. TWO PALLIATIVE NURSES AND SPIRITUAL CARE IN ROOM WITH PT AT TIME OF . DAUGHTER CALLED AND DR INFORMED BY CHARGE NURSE. POST MORTEM CARE PREFORMED AND HOME CALLED.
--- NOTE | 2021-11-02 18:38 | NUR ---
Multiple visits to patient after she came to medical floor. Having terminal aggitation. Review of medications and symptoms with pt nurse. Pt medicated and after about thirty minutes started to transition. RN welks and bedside called daughter and put phone to patients ear. neto called and theraput touch and support from us three given since no family with her. Geneva notified family and assited in funneral planning.
--- NOTE | 2021-11-02 20:46 | NUR ---
PATIENT PICKED UP BY HOME.
== END 2021-11-02 20:45 | DRG 871 ==
LOC: ER 17:41 → ICUW 22:04 → MEDS 11-02 13:32
PROVIDERS: Family Medicine; Internal Medicine; Student in an Organized Health Care Education/Training Program; ADMIT Internal Medicine
PROC: 3E03329 Introduction of Other Anti-infective into Peripheral Vein, Percutaneous Approach (ICD-10-PCS; principal; 2021-10-30)
PROC: 3E033XZ Introduction of Vasopressor into Peripheral Vein, Percutaneous Approach (ICD-10-PCS; 2021-10-30)
PROC: 02HV33Z Insertion of Infusion Device into Superior Vena Cava, Percutaneous Approach (ICD-10-PCS; 2021-10-30)
PROC: 5A09457 Assistance with Respiratory Ventilation, 24-96 Consecutive Hours, Continuous Positive Airway Pressure (ICD-10-PCS; 2021-10-30)
DX: A41.9 Sepsis, unspecified organism (principal); L89.153 Pressure ulcer of sacral region, stage 3; R65.21 Severe sepsis with septic shock; G93.41 Metabolic encephalopathy; J69.0 Pneumonitis due to inhalation of food and vomit; J18.9 Pneumonia, unspecified organism; T83.511A Infection and inflammatory reaction due to indwelling urethral catheter, initial encounter; E87.0 Hyperosmolality and hypernatremia; N39.0 Urinary tract infection, site not specified; L03.317 Cellulitis of buttock; F17.200 Nicotine dependence, unspecified, uncomplicated; Z51.5 Encounter for palliative care; Z66 Do not resuscitate; Z78.1 Physical restraint status; Z20.822 Contact with and (suspected) exposure to COVID-19; F31.9 Bipolar disorder, unspecified; E11.51 Type 2 diabetes mellitus with diabetic peripheral angiopathy without gangrene; J43.9 Emphysema, unspecified; R29.6 Repeated falls; R09.02 Hypoxemia; B96.4 Proteus (mirabilis) (morganii) as the cause of diseases classified elsewhere; F03.90 Unspecified dementia, unspecified severity, without behavioral disturbance, psychotic disturbance, mood disturbance, and anxiety; M19.90 Unspecified osteoarthritis, unspecified site; R45.1 Restlessness and agitation; B37.2 Candidiasis of skin and nail; E87.6 Hypokalemia; F17.290 Nicotine dependence, other tobacco product, uncomplicated; Z79.02 Long term (current) use of antithrombotics/antiplatelets; Z98.890 Other specified postprocedural states; Z90.49 Acquired absence of other specified parts of digestive tract; Z98.51 Tubal ligation status; Z79.899 Other long term (current) drug therapy; Y84.6 Urinary catheterization as the cause of abnormal reaction of the patient, or of later complication, without mention of misadventure at the time of the procedure
CPT/HCPCS: 0241U; 36415; 36556; 36600; 51702; 71045; 72193; 80048; 80053; 80202; 81001; 82803; 82947; 83036; 83605; 83735; 83880; 84100; 84145; 85025; 85610; 85730; 87040; 87077; 87086; 87186; 93005; 93010; 93925; 94660; 96360-59; 96361-59; 99285-25; A9270; C1751; J1170; J1644; J1940; J2060; J2543; J3010; J3370; J3480; J7030; J7040; J7050; J7060; J7070; Q9967